=== PATIENT | female | born 1960 | race Caucasian/White ===

== ENCOUNTER 2016-08-08 22:57 | Inpatient (IN) | payer BC, MEDICARE ==
--- NOTE | ~2016-08-08 | PN ---
Unit #: [id number] #: [id number] Patient: RANI FOSTER [id number] [facility] [address] [place] [address] [id number] MR#: [id number] NAME: RANI FOSTER ROOM: P251 Age: 56 Sex: F Admission Date: 08/08/2016 : 1960 Attending Physician: Cb Callahan M.D. Admitting Physician: Cb Callahan M.D. Primary Care Physician: Primary Care Physician Irena BELTRÁN NOTES DATE 08/14/2016 DISCUSSION Ms. Rani Foster is a 56-year-old female seen on 08/14/2016. The patient interviewed, chart reviewed. Obtained information from nursing staff. The patient was compliant and cooperative. Mood sad, dysphoric. The patient reported that she was not able to sleep last night, somewhat agitated. Mood was labile, guarded, paranoid, delusional. Yesterday Geodon was stopped. Vital signs temperature afebrile. The patient seems to be guarded, paranoid. Complete review of systems unremarkable. MENTAL STATUS EXAMINATION General appearance, the patient dressed casually. Attention span and concentration fair to poor. Oriented to place and person. Mood and affect was labile. Speech rapid. Thought process circumstantial. Association guarded, paranoid. Mood lability agitation but denied any thoughts of harming self or others. Recent and remote memory poor. Insight and judgement poor. DIAGNOSES Bipolar mood disorder NOS. ASSESSMENT/PLAN Advise to start the patient on Geodon 20 mg twice daily with one dose now, Ativan 0.5 mg three times a day to control anxiety and tremor with one dose now. The patient to continue with the inpatient programming. If needed consider further adjustment of medication. Dictated by... Bhaskar Rich/conrad TD: 08/15/2016 21:32 JOB #: [id number] Unit #: [id number] #: [id number] Patient: RANI FOSTER PROGRESS NOTES X Cb Callahan MD PROGRESS NOTE
--- NOTE | ~2016-08-08 | DS ---
Unit #: [id number] #: [id number] Patient: AMBER RODRIGUEZ [id number] [place] [address] [id number] I MR#: [id number] NAME: AMBER RODRIGUEZ ROOM: [facility] Age: 56 Sex: F Admission Date: 08/08/2016 : 1960 Discharge Date: 08/16/2016 Attending Physician: Cb Callahan M.D. Primary Care Physician: Primary Care Physician No DISCHARGE SUMMARY REASON FOR ADMISSION Psychosis and mood lability. DIAGNOSTIC STUDIES LABORATORY RESULTS: Glucose 142, total protein 5.5. Porcupine level less than 0.1. HOSPITAL COURSE The patient was admitted to inpatient unit on 08/08/2016 and discharged on 08/16/2016. The patient was treated on the inpatient unit with group therapy, individual therapy, medication management. The patient responded well with the above modalities of treatment and showed improvement. The patient was continued on Depakote 500 mg in the morning and 1000 mg at bedtime for mood stabilization, Geodon 40 mg at bedtime for psychosis, Ativan 0.5 mg t.i.d. for anxiety. The patient was continued on Zestril 20 mg daily for hypertension, Protonix 40 mg daily for GERD, Requip 1 mg b.i.d. for restlessness of legs, Glucophage 1000 mg b.i.d. for diabetes, Levemir and NovoLog for diabetes. The patient was taken off from Zyprexa and Seroquel. DISCHARGE DIAGNOSES Psychiatric: Bipolar mood disorder, not otherwise specified, F31.89. Secondary diagnosis: Deferred. Medical diagnoses: Obesity, diabetes mellitus, tremor. Stressors: Psychosocial stressors. DISCHARGE INSTRUCTIONS The patient to follow up in outpatient program as per social services manager. CONDITION ON DISCHARGE The patient was pleasant and cooperative. Denied any psychotic symptom or any suicidal ideation. PROGNOSIS Guarded. DIET AND ACTIVITY As tolerated. Unit #: [id number] #: [id number] Patient: AMBER RODRIGUEZ Dictated by... Bhaskar Rich/celsol TD: 08/17/2016 07:28 JOB #: [id number] DISCHARGE SUMMARY X Cb Callahan MD DISCHARGE SUMMARY
--- NOTE | ~2016-08-08 | PN ---
Unit #: [id number] #: [id number] Patient: RANI FOSTER [id number] [facility] [address] [place] [address] [id number] I MR#: [id number] NAME: RANI FOSTER ROOM: [facility]8 Age: 56 Sex: F Admission Date: 08/08/2016 : 1960 Attending Physician: Cb Callahan M.D. Admitting Physician: Cb Callahan M.D. Primary Care Physician: Primary Care Physician Irena BELTRÁN NOTES DATE 08/13/2016 DISCUSSION Ms. Rani Foster is a 56-year-old female, seen on 08/13/2016. The patient interviewed, chart reviewed, and obtained information from the nursing staff. The patient continues to be withdrawn, isolative, flat affect, sad, and dysphoric. The patient reported feeling tired, no energy. The patient's vital signs are stable. The patient staying by herself, withdrawn, but cooperative. REVIEW OF SYSTEMS Complete review of systems unremarkable. MENTAL STATUS EXAMINATION General appearance: Patient casually dressed. Attention span and concentration, fair. Oriented to place and person. Mood and affect, sad and depressed. Speech, monotone. Thought process, concrete. Association, the patient denied any thoughts of harming self or others but guarded and paranoid. Recent and remote memory, poor. Insight and judgment, poor. DIAGNOSIS Bipolar mood disorder, NOS. ASSESSMENT/PLAN Advised to discontinue Zyprexa to keep the medication as minimum as possible, if needed consider taking her Depakote if the patient does not show any improvement. Closely monitor the patient's behavior on the inpatient unit. Dictated by... Bhaskar Rich/radha TD: 08/14/2016 07:29 JOB #: [id number] Unit #: [id number] #: [id number] Patient: RANI FOSTER LEIGH ANN NOTES X Cb Callahan MD PROGRESS NOTE
--- NOTE | ~2016-08-08 | PN ---
Unit #: [id number] #: [id number] Patient: RANI FOSTER [id number] [facility] [address] [place] [address] [id number] MR#: [id number] NAME: RANI FOSTER ROOM: [facility] Age: 56 Sex: F Admission Date: 08/08/2016 : 1960 Attending Physician: Cb Callahan M.D. Admitting Physician: Cb Callahan M.D. Primary Care Physician: Primary Care Physician Irena BELTRÁN NOTES DATE OF SERVICE: 08/15/2016 DISCUSSION Ms. Rani Foster is a 56-year-old female. The patient continues to be anxious, nervous, guarded, paranoid, mood lability. The patient reported that she was able to sleep better, but still having a lot of problem with the anxiety, mood lability, paranoia. Complete review of systems unremarkable. MENTAL STATUS EXAMINATION General appearance, the patient dressed casually. Attention span and concentration, poor. Oriented in place and person. Mood and affect, labile. Speech, slow. Thought process, circumstantial. The patient denied any thoughts of harming self or others, but guarded, paranoid, severe anxiety, isolative. Recent and remote memory, poor. Insight and judgment, poor. DIAGNOSIS Bipolar mood disorder, not otherwise specified. ASSESSMENT AND PLAN Advised to change Ativan to 0.5 mg in the morning and 0.5 mg in the afternoon, stop evening dose of Ativan and also change Geodon to 40 mg at bedtime and stop morning Geodon. Continue with the inpatient programing. If needed, consider further adjustment of medication. Dictated by... Bhaskar Rich/nancy TD: 08/15/2016 18:13 JOB #: [id number] Unit #: [id number] #: [id number] Patient: RANI FOSTER PROGRESS NOTES X Cb Callahan MD PROGRESS NOTE
--- NOTE | ~2016-08-08 | PN ---
Unit #: [id number] #: [id number] Patient: RANI FOSTER [id number] [facility] [address] [place] [address] [id number] MR#: [id number] NAME: RANI FOSTER ROOM: [facility]8 Age: 56 Sex: F Admission Date: 08/08/2016 : 1960 Attending Physician: Cb Callahan M.D. Admitting Physician: Cb Callahan M.D. Primary Care Physician: Primary Care Physician Irena BELTRÁN NOTES DATE OF SERVICE: 08/10/2016 DISCUSSION Ms. Rani Foster is a 56-year-old female, seen on 08/10/2016. The patient was interviewed, chart reviewed, and obtained information from nursing staff. The patient was isolative, guarded, flat affect, sad and dysphoric. The patient reports still feeling sad, depressed, withdrawn, and guarded. The patient reported feeling sleepy, tired. The patient is on multiple medication, try to keep her medication minimum as possible. The patient scheduled to be seen by medical doctor because of fluctuation of blood sugar ranging from 40 to 137 and subsequently, the patient's Amaryl was discontinued. The patient's mood was labile, guarded, paranoid, compliant with medication. Complete review of systems is unremarkable. The patient's vital signs showed on 10/09, blood sugar was 142. MENTAL STATUS EXAMINATION General appearance, the patient moderately obese. Attention span and concentration, poor. Oriented in place and person. Mood and affect, labile. Speech, slow. Thought process, circumstantial. Association, guarded and paranoid, delusional, but denied any thoughts of harming self or others. Recent and remote memory, poor. Insight and judgment, poor. DIAGNOSIS Schizoaffective disorder, bipolar type. ASSESSMENT AND PLAN Advised to continue with current medication combination if needed consider further adjustment of medication. The patient is currently on Zyprexa 20 mg at bedtime and Depakote 1000 mg at bedtime. Dictated by... Cb Callahan M.D. YUE/nancy TD: 08/12/2016 02:06 JOB #: [id number] Unit #: [id number] #: [id number] Patient: RANI FOSTER X Cb Callahan MD
--- NOTE | ~2016-08-08 | CO ---
Unit #: [id number] #: [id number] Patient: AMBER RODRIGUEZ [id number] [place] [address] [id number] I MR#: [id number] NAME: AMBER RODRIGUEZ ROOM: [facility] Age: 56 Sex: F Admission Date: 08/08/2016 : 1960 Attending Physician: Cb Callahan M.D. Primary Care Physician: Primary Care Physician No Consultation Date: 08/09/2016 CONSULTATION REPORT SUBJECTIVE Thu is a 56-year-old with history of perirectal abscess and surgery some years ago. We have been asked to see her for a "possible decubitus" on her buttock. OBJECTIVE GENERAL: Alert, obese, no apparent distress. VITAL SIGNS: Blood pressure 130/70, heart rate 80, respirations 16, temperature 98.6. SKIN: Warm and dry without rash or lesion. There is a scar distal to the coccyx. No open wound is noted. ASSESSMENT Scar. PLAN Desitin ointment to her "behind" to prevent skin breakdown. Dictated by... Nathalie Chatman P.A.-C. for Bhaskar Ortiz/nancy TD: 08/12/2016 02:53 JOB #: [id number] CONSULTATION REPORT X Nathalie Chatman CONSULTATION REPORT
--- NOTE | ~2016-08-08 | PN ---
Unit #: [id number] #: [id number] Patient: AMBER FOSTER [id number] [facility] [address] [place] [address] [id number] I MR#: [id number] NAME: AMBER FOSTER ROOM: P208 Age: 56 Sex: F Admission Date: 08/08/2016 : 1960 Attending Physician: Cb Callahan M.D. Admitting Physician: Cb Callahan M.D. Primary Care Physician: Primary Care Physician Irena PATEL PROGRESS NOTES DATE OF SERVICE: 08/11/2016 DISCUSSION Thu Foster is a 56-year-old female, seen on 08/11/2016. The patient interviewed, chart reviewed, and obtained information from nursing staff. The patient was compliant and cooperative. Mood, sad and dysphoric. Flat affect and guarded. The patient was withdrawn, isolative, and guarded. REVIEW OF SYSTEMS Complete review of systems unremarkable. MENTAL STATUS EXAMINATION General appearance, the patient dressed casually. Attention span and concentration, fair. Oriented in place and person. Mood and affect, sad, depressed, withdrawn, and isolative. Speech, slow. Thought process, circumstantial. The patient denied any thoughts of harming self or others, but guarded and paranoid. Recent and remote memory, poor. Insight and judgment, poor. DIAGNOSIS Bipolar mood disorder, not otherwise specified. ASSESSMENT AND PLAN Advised to continue with current medication and therapeutic protocol. We will monitor response to medication and make further adjustment of medication. Dictated by... Bhaskar Rich/nancy TD: 08/12/2016 15:49 JOB #: [id number] Unit #: [id number] #: [id number] Patient: AMBER FOSTER PEAANABELLE PROGRESS NOTES X Cb Callahan MD PROGRESS NOTE
--- NOTE | ~2016-08-08 | PN ---
Unit #: [id number] #: [id number] Patient: RANI FOSTER [id number] [facility] [address] [place] [address] [id number] MR#: [id number] NAME: RANI FOSTER ROOM: [facility]8 Age: 56 Sex: F Admission Date: 08/08/2016 : 1960 Attending Physician: Cb Callahan M.D. Admitting Physician: Cb Callahan M.D. Primary Care Physician: Primary Care Physician Irena BELTRÁN NOTES DATE 08/09/2016 DISCUSSION Ms. Rani Foster is a 56-year-old female seen on 08/09/2016. Patient interviewed. Chart reviewed. Obtained information from nursing staff. Patient was somewhat sad, dysphoric, withdrawn, isolative, guarded. Patient adjusting fairly well to unit rules. Patient was having problem with the dizziness. Patient is on multiple medications at this time. Patient participating in program. Complete review of system unremarkable. MENTAL STATUS EXAMINATION General appearance, patient dressed casually. Attention span, concentration fair. Oriented in place and person. Mood and affect sad, dysphoric. Speech monotone. Thought process concrete. Patient denied any thoughts of harming self or others but guarded, paranoid, delusional. Recent and remote memory poor. Insight and judgement poor. DIAGNOSIS: Bipolar mood disorder NOS. ASSESSMENT/PLAN Advised to discontinue clonidine and propranolol as we did not see any indication for this medication and that making her more dizzy. At this time, also, ordered medical consultation to review patient's medical medication. The patient is currently on Depakote, Zestril, Protonix, Levemir. Patient is also taking Zyprexa 20 mg at bedtime. We will closely monitor patient's mood and behavior. If needed, consider further adjustment of medication. Dictated by... Cb Callahan M.D. YUE/deepa TD: 08/10/2016 22:09 JOB #: [id number] Unit #: [id number] #: [id number] Patient: RANI FOSTER PROGRESS NOTES X Cb Callahan MD PROGRESS NOTE
--- NOTE | ~2016-08-08 | PN ---
Unit #: [id number] #: [id number] Patient: AMBER RODRIGUEZ [id number] [facility] [address] [place] [address] [id number] I MR#: [id number] NAME: AMBER RODRIGUEZ ROOM: P251 Age: 56 Sex: F Admission Date: 08/08/2016 : 1960 Attending Physician: Cb Callahan M.D. Admitting Physician: Cb Callahan M.D. Primary Care Physician: Primary Care Physician Irena [facility] PROGRESS NOTES SUBJECTIVE The patient was seen today in my office in the presence of her . The chart reviewed. The patient does take current medication. The patient was just released from the hospital [facility] under the care of Dr. Callahan and changes of medication has been done over there. The patient is currently on Depakote 500 mg in the morning and 1000 mg at night, Geodon 40 mg at night, Ativan 0.5 mg t.i.d. p.r.n. anxiety, and Requip 1 mg b.i.d. The patient also is still taking Nuedexta 20/10 mg b.i.d. is very supportive. The [facility] Still reported some anxiety and irritability. The patient denied any active suicidal or homicidal thoughts. Denied any active hallucinations. Discussed with the patient and medication adjustment and both agree with that. PLAN 1. Change the p.r.n. Ativan to be taken on a scheduled basis 0.5 mg t.i.d. 2. Continue other medications. Return to clinic back in 3 weeks for followup visit. Prescription given today for Nuedexta for 1-month supply with 1 additional refill. DIAGNOSTIC IMPRESSION AXIS I: 1. Bipolar disorder, most recent episode manic with psychotic feature. 2. Generalized anxiety disorder. AXIS II: Deferred. AXIS III: No acute illness. AXIS IV: AXIS V: Dictated by... Bhaskar Palacios/nancy TD: 08/18/2016 23:16 JOB #: [id number] Unit #: [id number] #: [id number] Patient: AMBER RODRIGUEZ PROGRESS NOTES X Willian Toscano MD PROGRESS NOTE
--- NOTE | ~2016-08-08 | CO ---
Unit #: [id number] #: [id number] Patient: RANI RODRIGUEZ [id number] [place] [address] [id number] I MR#: [id number] NAME: RANI RODRIGUEZ ROOM: [facility]8 Age: 56 Sex: F Admission Date: 08/08/2016 : 1960 Attending Physician: Cb Callahan M.D. Primary Care Physician: Primary Care Physician No CONSULTATION REPORT Medical consult was requested by Dr. Callahan earlier in the week and this is a re-evaluation of medication. HISTORY OF PRESENT ILLNESS Rani has a history of type 2 diabetes, and before admission, she had not been taking Levemir as prescribed. She had been on metformin and glimepiride. She was taking metformin 1000 mg b.i.d. and glimepiride 4 mg daily. The glimepiride was decreased, and she was started on Levemir at 15 units subcu q.h.s.. Since then, her fasting blood sugars have been 40, 54, and 56, and she has required treatment for these low blood sugars. She has no other complaints. PHYSICAL EXAMINATION CARDIAC: Regular rate and rhythm. No murmur, gallop, or rub. RESPIRATORY: Clear to auscultation bilaterally. ASSESSMENT AND PLAN Type 2 diabetes. We will decrease Levemir to 10 units subcu q.h.s. and continue with metformin as prescribed. We will continue to monitor. Dictated by... Radha Issa A.P.R.N. for Bhaskar Ortiz/nancy TD: 08/12/2016 23:40 JOB #: [id number] CONSULTATION REPORT X RADHA SIMPSON APRN CONSULTATION REPORT
--- NOTE | ~2016-08-08 | PN ---
Unit #: [id number] #: [id number] Patient: AMBER RODRIGUEZ [id number] [facility] [address] [place] [address] [id number] I MR#: [id number] NAME: AMBER RODRIGUEZ ROOM: P208 Age: 56 Sex: F Admission Date: 08/08/2016 : 1960 Attending Physician: Cb Callahan M.D. Admitting Physician: Cb Callahan M.D. Primary Care Physician: [facility] PRO[facility] NOT[facility] SUBJECTIVE The patient was seen today in my office. I did invite her to attend part of the session. The patient reported she has been falling and she fell 3 or 4 times at home. The patient did have black eyes. The patient is currently on Zyprexa 10 mg at night, Depakote DR 1000 mg in the morning and 1500 mg at night, and Nuedexta 20/10 mg b.i.d., Seroquel 50 mg as needed for agitation, and clonidine 0.1 mg b.i.d. The patient did demonstrate some mood swings and some irritability. Reported that she sleeping long hours. The patient requested to change in medication and we had discussion in the office regarding that and the best way to change the medication is to be in hospice stating and she requested to go to [facility]. I did offer the patient to go to the [facility], however, she declined as she does not want to have Dr. Batista her psychiatrist, to be the psychiatrist there. The patient requested to go to [facility] psychiatric [facility]. The patient preferred [facility] as the first choice. I did ask the to take the patient to [facility] to be assessed for possible admission. This patient was demonstrating some racing thoughts and irritability. Denied any active suicidal or homicidal thoughts. No report of any active hallucinations. PLAN The patient to be hospitalized at [facility] from medication change and the patient to reschedule an appointment in 1 month or as soon as she gets out of [facility]. DIAGNOSTIC IMPRESSION AXIS I: 1. Bipolar disorder, most recent episode manic with psychotic features, in partial remission. 2. Generalized anxiety disorder. AXIS II: Deferred. AXIS III: No acute illness. AXIS IV: AXIS V: Dictated by... Bhaskar Palacios/nancy Unit #: [id number] #: [id number] Patient: AMBER RODRIGUEZ TD: 08/09/2016 05:56 JOB #: [id number] JORGE PROGRESS NOTES X Willian Toscano MD PROGRESS NOTE
--- NOTE | ~2016-08-08 | PN ---
Unit #: [id number] #: [id number] Patient: AMBER RODRIGUEZ [id number] [facility] [address] [place] [address] [id number] MR#: [id number] NAME: AMBER RODRIGUEZ ROOM: [facility]8 Age: 56 Sex: F Admission Date: 08/08/2016 : 1960 Attending Physician: Cb Callahan M.D. Admitting Physician: Cb Callahan M.D. Primary Care Physician: Primary Care Physician Irena BELTRÁN NOTES DATE OF SERVICE: 08/12/2016 DISCUSSION Ms. Saravia is a 56-year-old female, seen on 08/12/2016. The patient was withdrawn, isolative and reports that she is still feeling sad, depressed, and feeling tired. The patient's vital signs stable. The patient was isolative, guarded, flat affect. The patient was cooperative. The patient's blood sugar was 128 and 104; blood pressure 127/69 and 90 in the morning. The patient is compliant with medication. REVIEW OF SYSTEMS Complete review of systems unremarkable. MENTAL STATUS EXAMINATION General appearance, the patient dressed casually. Attention span and concentration, fair. Oriented in place and person. Mood and affect were labile, sad and dysphoric. Speech, monotone. Thought process, concrete. The patient denied any thoughts of harming self or others, but sad, depressed, withdrawn, isolative, guarded. Recent and remote memory, poor. Insight and judgment, poor. DIAGNOSIS Bipolar mood disorder, not otherwise specified. ASSESSMENT AND PLAN Advised to continue with current medication, Depakote and Zyprexa 20 mg at bedtime. If needed, consider further adjustment of medication. Try to keep the medication minimum as possible. Dictated by... Bhaskar Rich/celsol TD: 08/14/2016 06:27 JOB #: [id number] Unit #: [id number] #: [id number] Patient: AMBER RODRIGUEZ PEAANABELLE PROGRESS NOTES X Cb Callahan MD PROGRESS NOTE
--- NOTE | ~2016-08-08 | HP ---
Unit #: [id number] #: [id number] Patient: RANI RODRIGUEZ [id number] [place] [address] [id number] MR#: [id number] NAME: RANI RODRIGUEZ ROOM: P208 Age: 56 Sex: F Admission Date: 08/08/2016 : 1960 Attending Physician: Cb Callahan M.D. Admitting Physician: Cb Callahan M.D. Primary Care Physician: Primary Care Physician No HISTORY AND PHYSICAL HISTORY OF PRESENT ILLNESS Rani is a 56 year old admitted to [address] [place] [address] because of her psychiatrist, Dr. Toscano is concerned about her medications but wants her to be under hospital supervision for the changes. PAST MEDICAL HISTORY 1. Morbid obesity 2. Diabetes mellitus 3. High blood pressure 4. History of perirectal abscess 5. History of resting tremor PAST SURGICAL HISTORY 1. I & D of a perirectal abscess 2. section x1 3. Lap band ALLERGIES No known drug allergies. SOCIAL HISTORY She dips a 1/2 can of snuff on a daily basis. Denies alcohol and illicit drug use. FAMILY HISTORY Medically noncontributory. REVIEW OF SYSTEMS CONSTITUTIONAL: No fever or chills. HEENT: Denies any sore throat, ear pain or runny nose. CARDIOVASCULAR: Denies chest pain, irregular heart rhythm or palpitations. CHEST: Denies shortness of breath or cough. No hemoptysis. GASTROINTESTINAL: Denies nausea, vomiting, diarrhea or chronic constipation. ENDOCRINE: Denies history of increased thirst or urination. No recent significant weight loss or gain. GENITOURINARY: Denies dysuria, frequency, or hematuria. SKIN: Denies any rashes. HEMATOLOGIC: Denies history of increased bleeding or bruising. MUSCULOSKELETAL: Denies any hot, swollen joints. No generalized muscle pain. Unit #: [id number] #: [id number] Patient: RANI RODRIGUEZ NEUROLOGIC: Denies problems with vision or speech. No frequent, severe headaches. No numbness, tingling or weakness in any extremities. Denies loss of bladder or bowel control. CURRENT MEDICATIONS 1. Levemir 15 units q.h.s. 2. Depakote 1000 mg q.h.s. 3. Propranolol 20 mg b.i.d. This was discontinued by the psychiatrist. 4. Nicotine patch 7 mg daily 5. Phenergan 25 mg q.i.d. 6. Ropinirole 1 mg b.i.d. 7. Protonix 40 mg daily 8. Zestril 20 mg daily 9. Depakote 500 mg daily 10. Glucophage 1000 mg b.i.d. 11. Amaryl 4 mg b.i.d. 12. Milk of Magnesia p.r.n. 13. Maalox p.r.n. 14. Tylenol p.r.n. 15. Zyprexa 20 mg q.h.s. 16. Seroquel 50 mg q 8 h. p.r.n. PHYSICAL EXAMINATION GENERAL: Alert, obese, in no apparent distress. VITAL SIGNS: Blood pressure 120/84, heart rate 80, respirations 16, temperature 98.6. WEIGHT: 220 pounds. HEIGHT: 5'3". SKIN: Warm and dry without rash or lesion. HEENT: Normocephalic. TMs not viewed. Oral and nasal passages clear. Conjunctivae clear. Pupils equal, round and reactive to light and accommodation. Extraocular movements intact. Bilateral orbits bruised but bruises have started to yellow. NECK: Supple without lymphadenopathy or thyromegaly. HEART: Regular rate and rhythm without murmur. LUNGS: Clear. ABDOMEN: Soft, nontender. : Not done. EXTREMITIES: No evidence of cyanosis, clubbing or edema. Moves all extremities without focal deficit. Fine resting tremor right upper extremity with positive cogwheel. NEUROLOGICAL: Grossly within normal limits. Cranial Nerves: II: Visual west are intact. III, IV AND : Extraocular movements are intact. Pupils are equal, round and reactive to light. V: Facial sensation is grossly normal. VII: Facial movements and expression are normal. VIII: Auditory acuity grossly intact. IX, X: Uvula is midline. Phonation is normal. XI: Patient shrugs shoulders and turns head normally. XII: Tongue protrudes in the midline. Sensory and Motor Function: Sensory is grossly intact. She has a fine resting tremor in her left upper extremity with positive cogwheel. Otherwise moves all extremities without focal deficit. Coordination: Gait is normal. She does walk with a cane. In fact it is more like she carries the cane around. It is very short and she just carries it in her right hand. During exam I did lengthen the cane so she can actually use it for balance. DTRs is intact. IMPRESSION 1. Psychiatric admission. Unit #: [id number] #: [id number] Patient: RANI RODRIGUEZ 2. Morbid obesity. 3. Diabetes mellitus. 4. High blood pressure. 5. Fine resting tremor with positive cogwheel, very likely Parkinsons although she tells me she has never been diagnosed. RECOMMENDATIONS PSYCHIATRIC: Per psychiatrist. MEDICAL: 1. I see no contraindications to participating in facility's activities. 2. Propranolol 20 mg b.i.d. was discontinued by psychiatrist at time of admission. I do not want to DC this abruptly. We will decrease the propranolol to 10 mg b.i.d. 3. Decrease Phenergan to 25 mg q.8 h. p.r.n. nausea vomiting. 4. She will need to follow up with her primary care physician for exam and definitive diagnosis of the resting tremor. MEDICAL PROGNOSIS Good. MEDICAL CONDITION Stable. Dictated by... Nathalie Chatman P.A.-C. for Bhaskar Ortiz/conrad TD: 08/09/2016 22:33 JOB #: [id number] HISTORY AND PHYSICAL X Nathalie Chatman HISTORY AND PHYSICAL
--- NOTE | ~2016-08-08 | PA ---
Unit #: [id number] #: [id number] Patient: RANI RODRIGUEZ [id number] [facility] [address] [place] [address] [id number] I MR#: [id number] NAME: RANI RODRIGUEZ ROOM: [facility] Age: 56 Sex: F Admission Date: 08/08/2016 : 1960 Date of Assessment: 08/08/2016 Attending Physician: Cb Callahan M.D. Admitting Physician: Cb Callahan M.D. Primary Care Physician: Primary Care Physician No PSYCHIATRIC ASSESSMENT INFORMANTS The patient's reliability, fair; chart reliability, good. CHIEF COMPLAINT Paranoia. HISTORY OF PRESENT ILLNESS Rani is a 56-year-old female, presented with the above-mentioned complaint. The patient has a long history of psychiatric illness. History of previous treatment at [facility] and outpatient followup through [facility] with Dr. Toscano. The patient also received services through [facility] in the past. The patient lives at home with her , on disability. The patient was seen by Dr. Toscano and referred for the med changes as the patient was having increasing problem with paranoia including increased anxiety, tremor, occasional fall. The patient's condition has been deteriorating for the past couple of months. The patient reported that she has been having severe anxiety. Reports that she is unable to do grocery shopping and complete other daily tasks. The patient reported delusional thinking stated that "I believe Satan in me." The patient does not elaborate on this, but paranoid, delusional, inappropriate affect, flat, sad, dysphoric, severe anxiety. The patient's current medication is not working on the outpatient basis; therefore, referred to inpatient for psychiatric stabilization. The patient also reported having problem with the intense anger. The patient reports decline in energy, unable to take care of her ADL, hopelessness, worthlessness, but denied any suicidal ideation or homicidal ideation, but having above-mentioned symptoms. Needing inpatient admission at this time for psychiatric stabilization. PAST PSYCHIATRIC HISTORY Remarkable for history of inpatient and outpatient treatment as mentioned above. Outpatient followup with Dr. Toscano. FAMILY HISTORY/SOCIAL HISTORY The patient lives with her , on disability. Family psychiatric illness is unknown for any history of any psychiatric illness. No known history of any abuse. MEDICAL HISTORY Remarkable for history of diabetes, hypertension, tremor. Musculoskeletal; muscle and tone, no atrophy or abnormal movement. Gait normal. Unit #: [id number] #: [id number] Patient: RANI RODRIGUEZ MEDICATION HISTORY The patient is currently on Levemir 15 units at 2100 hours, Depakote 1000 mg at bedtime, propranolol 20 mg b.i.d., ropinirole 1 mg b.i.d., Catapres 0.1 mg b.i.d., Protonix 40 mg daily, Zestril 20 mg daily, Depakote 500 mg daily, Glucophage 1000 mg b.i.d., Amaryl 4 mg b.i.d., Seroquel p.r.n. ALLERGIES No known drug allergies. SUBSTANCE ABUSE HISTORY None. REVIEW OF SYSTEMS HEENT: Eyes, clear. Ears, nose, mouth, and throat; clear. CARDIOVASCULAR: Unremarkable. RESPIRATORY: Unremarkable. GI: Unremarkable. : Unremarkable. SKIN: Unremarkable. LYMPH NODE: Unremarkable. NEUROLOGIC: Unremarkable. ENDOCRINE: Unremarkable. HEMATOLOGIC: Unremarkable. ALLERGIC/IMMUNOLOGIC: Unremarkable. MUSCULOSKELETAL: Muscle strength and tone, no atrophy or abnormal movement. Gait normal. MENTAL STATUS EXAMINATION CONSTITUTIONAL: Measurement of vital signs; temperature 97.6, pulse 95, respirations 19, blood pressure 119/84. Height is 5 feet 3 inches, weight 220 pounds. GENERAL APPEARANCE: The patient dressed casually. Noticed black circles underneath her eye. MUSCULOSKELETAL: Please see above. PSYCHIATRIC EXAMINATION Description of speech; regular rate, normal volume, normal articulation. Description of thought process, goal directed. Description of association, intact. Description of abnormal psychotic thinking; guarded, paranoid, mood lability, paranoia. Denied any suicidal ideation, but feeling of hopelessness and worthlessness. Description of the patient's judgment; concerning everyday activity, poor. Social situation, poor. Concerning psychiatric condition, poor. Complete mental status examination; oriented in time, place, and person. Recent and remote memory, fair. Attention span and concentration, fair. Language, able to name object and repeat phrases. Fund of knowledge, fair. Vocabulary, fair. Mood and affect, sad and dysphoric. Insight and judgment, fair to poor. ASSETS AND LIABILITIES Assets; the patient articulate, able to take care of her ADL. Liability; history of depression, chronic mental illness. ADMITTING DIAGNOSES Psychiatric: Bipolar mood disorder, not otherwise specified, F31.89. Unit #: [id number] #: [id number] Patient: RANI RODRIGUEZ Secondary diagnosis: Deferred. Medical diagnoses: Obesity, diabetes mellitus, tremors. Stressors: Psychosocial stressors. PSYCHIATRIC PLAN AND TREATMENT GOAL 1. Advised to admit the patient on the inpatient unit. Provide safe, supportive, and structured environment. 2. Ordered labs; CBC, CMP, UA, UDS, and Depakote level, ammonia level. 3. Precaution for self-harm. The patient to be monitored closely for fall precaution. 4. The patient to attend all the programing. Advised to resume current medication. If needed, consider further adjustment of medication. The patient has no history of any hypertension. Plan to consider cutting back on her medication if possible to minimum and consider mood stabilizer. The patient to attend all the programing on the inpatient unit. Treatment goal to attain euthymic mood, gain insight into her problem, and learn coping skills. DISCHARGE PLAN Plan to stabilize the patient and consider followup in outpatient program. ESTIMATED LENGTH OF STAY 5 to 7 days. Dictated by... Bhaskar Rich/nancy TD: 08/10/2016 05:18 JOB #: [id number] PSYCHIATRIC ASSESSMENT X Cb Callahan MD X PSYCHIATRIC ASSESSMENT
--- NOTE | ~2016-08-08 | PN ---
Unit #: [id number] #: [id number] Patient: AMBER RODRIGUEZ [id number] [facility] [address] [place] [address] [id number] MR#: [id number] NAME: AMBER RODRIGUEZ ROOM: P251 Age: 56 Sex: F Admission Date: 08/08/2016 : 1960 Attending Physician: Cb Callahan M.D. Admitting Physician: Cb Callahan M.D. Primary Care Physician: Primary Care Physician Irena [facility] PROGRESS NOTES SUBJECTIVE The patient was seen today in my office. The chart reviewed. The patient does comply on medication. Denied any side effects to medication other than she did not like the Ativan which make her more agitated. The patient is currently on Depakote 500 mg in the morning and 1000 mg at night, Geodon 40 mg at night, Ativan 0.25 mg b.i.d., Requip 1 mg p.o. t.i.d. which is the dose was adjusted by Dr. Bernstein, the neurologist recently and she is still taking Nuedexta 20/10 mg b.i.d. Reported less mood swings, less irritability, less manic symptomatology. Denied any active suicidal or homicidal thoughts. Denied any psychotic behavior. Reported insomnia. Vital signs; blood pressure 104/56, pulse is 86 per minute and regular, weight is 199 pounds, height is 5 feet 7 inches. The patient lost 12 pounds since last visit and she was excited about that. was present during the visit and he was very supportive. Discussed with the patient medication change and she did agree with that. PLAN 1. Discontinue Ativan due to side effects. 2. A trial of Lunesta 3 mg at bedtime for insomnia. 3. Continue other medications. Return to clinic back in 1 month for followup visit. Prescription given today for the Lunesta and Geodon for 1-month supply with 1 additional refill. DIAGNOSTIC IMPRESSION AXIS I: 1. Bipolar disorder, most recent episode manic with psychotic feature, improved on the medication. 2. Generalized anxiety disorder. AXIS II: Deferred. AXIS III: No acute illness. AXIS IV: AXIS V: Dictated by... Willian Toscano M.D. SAL[place]ADOR/nancy TD: 10/13/2016 17:00 JOB #: [id number] Unit #: [id number] #: [id number] Patient: AMBER RODRIGUEZ PROGRESS NOTES Page 1 of 1 X Willian Toscano MD PROGRESS NOTE
--- NOTE | ~2016-08-08 | CO ---
Unit #: [id number] #: [id number] Patient: RANI RODRIGUEZ [id number] [place] [address] [id number] I MR#: [id number] NAME: RANI RODRIGUEZ ROOM: [facility] Age: 56 Sex: F Admission Date: 08/08/2016 : 1960 Attending Physician: Cb Callahan M.D. Primary Care Physician: Primary Care Physician No Consultation Date: 08/15/2016 CONSULTATION REPORT SUBJECTIVE Rani is a 56-year-old lady who wears a brief. Nursing staff was concerned that she had a "possible UTI." The patient has no complaints of urgency, frequency, or dysuria. Urinalysis from 08/13/2016 showed 10 to 25 wbc's and negative bacteria. PLAN Plan will be to encourage fluids. Please let us know if anything develops. Dictated by... Nathalie Chatman P.A.-C. for Bhaskar Ortiz/nancy TD: 08/16/2016 17:48 JOB #: [id number] CONSULTATION REPORT X Nathalie Chatman CONSULTATION REPORT
--- NOTE | ~2016-08-08 | PN ---
Unit #: [id number] #: [id number] Patient: AMBER RODRIGUEZ [id number] [facility] [address] [place] [address] [id number] I MR#: [id number] NAME: AMBER RODRIGUEZ ROOM: P251 Age: 56 Sex: F Admission Date: 08/08/2016 : 1960 Attending Physician: Cb Callahan M.D. Admitting Physician: Cb Callahan M.D. Primary Care Physician: Primary Care Physician Irena PATEL PROGRESS NOTES SUBJECTIVE The patient was seen today in my office. The chart reviewed. The patient's was present during the visit. The patient has an appointment with Dr. Bernstein, the neurologist for evaluation on 09/18. The patient is currently on Depakote 500 mg in the morning and 1000 mg at night; Geodon 40 mg at night; Ativan 0.25 mg t.i.d.; Requip 1 mg p.o. b.i.d.; and Nuedexta 20/10 mg b.i.d. is very supportive and he monitor the patient's compliance with medications. The patient will been seen Dr. Bernstein, neurologist for evaluation for the hand tremors and get clearance from him for the driving as I recommend the patient not to drive at this point, so she get clearance from the neurologist. Dr. Bernstein for the hand tremors and shakes. The patient did demonstrate improvement in behavior and symptomatology. No report of any active hallucination or paranoia. No report of any major mood swings. Thoughts have been more clear and organized. Sleep has been fair. Vital signs are stable. Blood pressure 126/89, pulse is 109 per minute and regular, weight is 211 pounds, and height is 5 feet 7 inches. The patient does not smoke cigarettes. Denied any physical pain. PLAN Continue current medication. Return to clinic back in 1 month for followup visit. Prescription given today for the Depakote, Ativan, and Geodon for 1-month supply with 1 additional refill. DIAGNOSTIC IMPRESSION AXIS I: 1. Bipolar disorder, most recent episode manic with psychotic feature, improved, on medication. 2. Generalized anxiety disorder. AXIS II: Deferred. AXIS III: No acute illness. AXIS IV: AXIS V: Dictated by... Bhaskar Palacios/nancy TD: 09/13/2016 19:15 JOB #: [id number] Unit #: [id number] #: [id number] Patient: AMBER RODRIGUEZ PROGRESS NOTES Page 1 of 1 X Willian Toscano MD X PROGRESS NOTE
[~2016-08-08 22:57] MED LIST: BENTYL20 MG PO; GLUCOPHAGE500 MG PO; LEVAQUIN PO; LEXAPRO5 MG PO; LITHIUM CARBON300 M1 PO; MELATONIN3 M4 PO; METFORMIN HCL500 M1 PO; METFORMIN PO; PERCOCET 5-3251 TAB PO; PRAMIPEXOLE DI0.5 MG PO; PROTONIX PO; PROTONIX20 MG; PROTONIX20 MG PO; REQUIP0.25 MG PO; ROPINIROLE HCL1 MG; ROPINIROLE HCL1 MG PO; SEROQUEL PO; TRILEPTAL300 MG PO; ZOLOFT50 MG PO
[2016-08-09 09:53] LABS: BASOPHIL% 0.2 % (0-2.5); EOSINOPHIL% 0.8 % (0.0-7.0); HEMATOCRIT 35.1 % (35.0-45.0); HEMOGLOBIN 11.7 gm/dL (12.0-16.0); LYMPHOCYTE# 3.6 X10e3 (1.0-3.5); LYMPHOCYTE% 55.8 % (17.0-45.0); MEAN CELL VOLUME 105.3 FL (83-96); MEAN CORPUSCULAR HGB CONC 33.2 g/dL (30-36); MEAN PLATELET VOLUME 9.1 FL (6.5-11.5); MONOCYTE# 0.8 X10e3 (0-1.0); MONOCYTE% 12.6 % (3.0-12.0); NEUTROPHIL% 30.6 % (40-75); PLATELET COUNT 174 X10e3 (140-420); RED BLOOD COUNT 3.33 X10e (3.90-5.30); RED CELL DISTRIBUTION WIDTH 14.7 % (11.0-15.5); WHITE BLOOD COUNT 6.5 X10e3 (4.0-10.5)
[2016-08-09 09:56] LABS: DIFF IND YES
[2016-08-09 10:06] LABS: BILIRUBIN,TOTAL 0.4 mg/dL (0.2-2.0); BUN/CREATININE RATIO 22.5; CALCIUM SERUM 8.9 mg/dL (8.4-10.2); CREATININE SERUM 1.2 mg/dL (0.6-1.4); GLOM FILT RATE Estimated 49.2 mL/min (>60); PROTEIN TOTAL SERUM 5.5 g/dL (6.0-8.3)
[2016-08-09 10:07] LABS: THYROID STIMULATING HORMONE 0.74 uIU/ml (0.34-5.60)
[2016-08-09 10:13] LABS: ANISOCYTOSIS SL; PLATELET ESTIMATE NORMAL (NORMAL)
[2016-08-09 10:16] LABS: FREE THYROXIN (T4) 0.84 ng/dL (0.58-1.64)
[2016-08-14 09:33] LABS: URINE APPEARANCE CLEAR; URINE BILIRUBIN NEG (NEG); URINE BLOOD NEG (NEG); URINE COLOR YELLOW; URINE GLUCOSE 250 MG/DL (NEG); URINE KETONE NEG (NEG); URINE LEUKOCYTE ESTERASE 2+ (NEG); URINE NITRATE NEG (NEG); URINE PH 7.5 (5-8); URINE PROTEIN NEG (NEG); URINE SPECIFIC GRAVITY 1.016 (1.003-1.035); URINE UROBILINOGEN 0.2 MG/DL (NEG)
[2016-08-14 09:35] LABS: U HYALINE CASTS AUWI 0-2 /[LPF]; URBCS1 AUWI 0-2 /[HPF] (0-2); URINE BACTERIA AUWI NEG (NEGATIVE); URINE SQUAMOUS EPITHELIAL CELL OCC /[HPF]
[2016-08-14 10:41] LABS: AMPHETAMINE NEG (NEG); BARBITURATES NEG (NEG); BENZODIAZEPINES NEG (NEG); COCAINE NEG (NEG); MARIJUANA NEG (NEG); OPIATES NEG (NEG); TRICYCLIC ANTIDEPRESSANTS POS (NEG); U METHADONE NEG (NEG)
== END 2016-08-16 16:30 | disposition home or self-care (01) | DRG 885 ==
LOC: P2S 22:57 → POF 08-14 13:58 → P2S 08-14 14:05 → P2L 08-15 14:28
PROVIDERS: Psychiatry & Neurology Psychiatry
DX: F31.89 Other bipolar disorder (principal); E66.01 Morbid (severe) obesity due to excess calories; I10 Essential (primary) hypertension; E11.9 Type 2 diabetes mellitus without complications; R25.1 Tremor, unspecified; F31.73 Bipolar disorder, in partial remission, most recent episode manic; F41.1 Generalized anxiety disorder; F17.290 Nicotine dependence, other tobacco product, uncomplicated; Z98.84 Bariatric surgery status; L90.5 Scar conditions and fibrosis of skin; F25.0 Schizoaffective disorder, bipolar type; F41.9 Anxiety disorder, unspecified
CPT/HCPCS: 80053; 80164; 80307; 81003; 82140; 82947; 84439; 84443; 85025

== ENCOUNTER 2016-12-21 19:00 | Inpatient (IN) | payer BC, MEDICARE ==
[~2016-12-21] VITALS: Ht 167.6 cm; Wt 99.3 kg
--- NOTE | ~2016-12-21 | PN ---
Unit #: [id number] #: [id number] Patient: RANI FOSTER [id number] [facility] [address] [place] [address] [id number] I MR#: [id number] NAME: RANI FOSTER ROOM: P256 Age: 56 Sex: F Admission Date: 12/21/2016 : 1960 Attending Physician: Cb Callahan M.D. Admitting Physician: Cb Callahan M.D. Primary Care Physician: Primary Care Physician Irena BELTRÁN NOTES DATE 12/29/2016 DISCUSSION Ms. Rani Foster is a 56-year-old female seen on 12/29/2016. Patient interviewed. Chart reviewed. Obtained information from nursing staff. Patient was admitted with suicidal ideation, depression. Mood was labile. Patient was somewhat sleepy this morning, started on Haldol. Patient has been awake all night long after having taking sleeping medication. This morning, patient was very sleepy, drowsy. Patient needing one-to-one monitoring at all time. Patient still having problem with mood lability, anxiety, getting mad, angry, mood lability. Complete review of system unremarkable. MENTAL STATUS EXAMINATION General appearance, patient dressed in hospital attire. Attention span, concentration poor. Orientation in self. Mood and affect labile. Speech slow. Thought process circumstantial. Patient denied any thoughts of harming self or others but guarded, paranoid. Recent and remote memory poor. Insight and judgement poor. DIAGNOSIS Bipolar mood disorder NOS. ASSESSMENT/PLAN Advised to cut back on Haldol 5 mg at bedtime. Continue with Cogentin but lower the dosage to 1 mg twice daily. Advised to hold Geodon if patient too sleepy. We will continue to monitor patient's medical condition also and make further adjustment of medication if needed. Dictated by... Bhaskar Rich/deepa TD: 12/29/2016 21:16 JOB #: [id number] Unit #: [id number] #: [id number] Patient: RANI FOSTER PROGRESS NOTES Page 1 of 1 X Cb Callahan MD PROGRESS NOTE
--- NOTE | ~2016-12-21 | PN ---
Unit #: [id number] #: [id number] Patient: AMBER FOSTER [id number] [facility] [address] [place] [address] [id number] I MR#: [id number] NAME: AMBER FOSTER ROOM: [facility] Age: 56 Sex: F Admission Date: 12/21/2016 : 1960 Attending Physician: Cb Callahan M.D. Admitting Physician: Cb Callahan M.D. Primary Care Physician: Primary Care Physician Irena BELTRÁN NOTES DATE OF SERVICE: 12/23/2016 DISCUSSION Ms. Clint Foster is a 56-year-old female, seen on 12/23/2016. The patient's affect was brighter, poor boundaries, impulsive, needing prompts to take care of her bathing, dressing, thoughts of concrete, guarded paranoid, mood lability. The patient's blood sugar this morning was 114, continues to have bizarre behavior, paranoia, mood lability. Complete review of systems unremarkable. MENTAL STATUS EXAMINATION General appearance, the patient dressed casually. Attention span and concentration, poor. Mood and affect, labile. Speech, louder. Thought process, circumstantial, guarded and paranoid, but denied any thoughts of harming self or others, but guarded. Recent and remote memory, poor. Insight and judgment, poor. DIAGNOSES Bipolar mood disorder, recurrent, severe, mixed phase. ASSESSMENT AND PLAN Advised to continue with current medication and therapeutic protocol. If needed, consider further adjustment of medication. Dictated by... Bhaskar Rich/nancy TD: 12/23/2016 15:11 JOB #: [id number] Unit #: [id number] #: [id number] Patient: AMBER FOSTER PROGRESS NOTES Page 1 of 1 X Cb Callahan MD X PROGRESS NOTE
--- NOTE | ~2016-12-21 | PN ---
Unit #: [id number] #: [id number] Patient: RANI FOSTER [id number] [facility] [address] [place] [address] [id number] MR#: [id number] NAME: RANI FOSTER ROOM: P256 Age: 56 Sex: F Admission Date: 12/21/2016 : 1960 Attending Physician: Cb Callahan M.D. Admitting Physician: Cb Callahan M.D. Primary Care Physician: Primary Care Physician Irena PATEL PROGRESS NOTES DATE 12/26/2016 DISCUSSION Ms. Rani Foster is a 56-year-old female, seen on 12/26/2016. The patient compliant and cooperative during interview, but mood was labile, disorganized behavior, disorganized thought process. The patient had a bowel movement in her clothes in her room. The patient was guarded, paranoid, disorganized behavior, disorganized thought process, mood lability. The patient still needing multiple redirections. REVIEW OF SYSTEMS Complete review of systems unremarkable. MENTAL STATUS EXAMINATION General appearance: Patient dressed casually in hospital attire. Attention span and concentration, fair. Oriented in place and person. Mood and affect, labile. Speech, rapid, pressured. Thought process, circumstantial, guarded. Denied any thoughts of harming self or others but guarded, paranoid, and disorganized behavior, disorganized thought process. Recent and remote memory, poor. Insight and judgment, poor. DIAGNOSIS Bipolar mood disorder, NOS. ASSESSMENT/PLAN Advised to increase Haldol to 5 mg three times a day, add Cogentin 1 mg three times a day for psychotic symptoms, if needed consider further adjustment of medication. Continue with the inpatient programming. Dictated by... Bhaskar Rich/radha TD: 12/27/2016 06:38 JOB #: [id number] Unit #: [id number] #: [id number] Patient: RANI FOSTER PROGRESS NOTES Page 1 of 1 X Cb Callahan MD X PROGRESS NOTE
--- NOTE | ~2016-12-21 | PN ---
Unit #: [id number] #: [id number] Patient: RANI FOSTER [id number] [facility] [address] [place] [address] [id number] I MR#: [id number] NAME: RANI FOSTER ROOM: [facility] Age: 56 Sex: F Admission Date: 12/21/2016 : 1960 Attending Physician: Cb Callahan M.D. Admitting Physician: Cb Callahan M.D. Primary Care Physician: Primary Care Physician Irena PATEL PROGRESS NOTES DATE 12/24/2016 DISCUSSION Rani Foster is a 56-year-old female, seen on 12/24/2016. The patient interviewed, chart reviewed, and obtained information from the nursing staff. The patient reports that she was able to sleep good, compliant and cooperative, still isolative, guarded, bizarre behavior, bizarre thought process. Vital signs, 98.0, 139, 21, 116/88. The patient was out of milieu and interacted with some of the peers. The patient was somewhat loud, disruptive, cussing without provocation, still bizarre behavior. REVIEW OF SYSTEMS Complete review of systems unremarkable. MENTAL STATUS EXAMINATION General appearance: Patient dressed casually. Attention span and concentration, poor. Oriented in self and place. Mood and affect, labile. Speech, rapid, disorganized. Thought process, disorganized. Denied any thoughts of harming self or others but mood lability, passive SI. Recent and remote memory, poor. Insight and judgment, poor. DIAGNOSES 1. Psychosis, NOS. 2. Bipolar mood disorder, NOS. ASSESSMENT/PLAN Advised to continue with the current medication and therapeutic protocol, and if needed consider further adjustment of medication. The patient is currently on Valium, Depakote, and Geodon. Dictated by... Cb Callahan M.D. YUE/radha TD: 12/26/2016 06:16 JOB #: [id number] Unit #: [id number] #: [id number] Patient: RANI FOSTER PROGRESS NOTES Page 1 of 1 X Cb Callahan MD X PROGRESS NOTE
--- NOTE | ~2016-12-21 | PN ---
Unit #: [id number] #: [id number] Patient: RANI FOSTER [id number] [facility] [address] [place] [address] [id number] I MR#: [id number] NAME: RANI FOSTER ROOM: P256 Age: 56 Sex: F Admission Date: 12/21/2016 : 1960 Attending Physician: Cb Callahan M.D. Admitting Physician: Cb Callahan M.D. Primary Care Physician: Primary Care Physician Irena PATEL PROGRESS NOTES DATE 12/28/2016 DISCUSSION Ms. Rani Foster is a 56-year-old female seen on 12/28/2016. Patient interviewed. Chart reviewed. Obtained information from nursing staff. Patient in wheelchair, needing one-to-one monitoring. Patient was able to sleep better. Vital signs stable 98.6, 84, 20, 108/74. Patient seemed somewhat less manic, needing help with ambulation, dressing, toileting, transfer. Patient wanted to know about going home. Patient seemed less paranoid. Complete review of system unremarkable. MENTAL STATUS EXAMINATION General appearance, patient dressed in hospital attire. Attention span, concentration poor. Oriented in place and person. Mood and affect was sad, dysphoric. Speech monotone. Thought process disorganized to circumstantial. Association, patient denied any suicidal or homicidal ideation but guarded, paranoid. Recent and remote memory poor. Insight and judgement poor. DIAGNOSIS Bipolar mood disorder NOS. ASSESSMENT/PLAN Advised to continue with current medication and therapeutic protocol. If needed, consider further adjustment of medication. No side effects from medication. Patient is currently on combination of Desyrel 100 mg p.r.n. for sleep. Also, on Cogentin, haloperidol, Valium, Requip, Depakote. Patient's Depakote level was 93, ammonia level 18. Dictated by... Cb Callahan M.D. YUE/deepa TD: 12/28/2016 20:31 JOB #: [id number] Unit #: [id number] #: [id number] Patient: RANI FOSTER PROGRESS NOTES Page 1 of 1 X Cb Callahan MD PROGRESS NOTE
--- NOTE | ~2016-12-21 | PN ---
Unit #: [id number] #: [id number] Patient: RANI FOSTER [id number] [facility] [address] [place] [address] [id number] I MR#: [id number] NAME: RANI FOSTER ROOM: [facility] Age: 56 Sex: F Admission Date: 12/21/2016 : 1960 Attending Physician: Cb Callahan M.D. Admitting Physician: Cb Callahan M.D. Primary Care Physician: Primary Care Physician Irena PATEL PROGRESS NOTES DATE 12/22/2016 DISCUSSION Rani Foster is a 56-year-old female seen on 12/22/2016. Patient interviewed. Chart reviewed. Obtained information from nursing staff. Patient's mood was labile, anxious, nervous, sad, depressed. Patient still having symptoms of paranoia, delusional, attending to internal stimuli, hearing voices. Complete review of system unremarkable. MENTAL STATUS EXAMINATION General appearance, patient dressed casually. Attention span, concentration poor. Oriented in place and person. Mood and affect labile. Speech rapid. Thought process circumstantial. Patient reported having suicidal ideation, hallucinations. Denied any visual hallucinations. Recent and remote memory poor. Insight and judgement poor. DIAGNOSIS Bipolar mood disorder NOS. ASSESSMENT/PLAN Advised to continue with current medication and therapeutic protocol. If needed, consider further adjustment of medication. Dictated by... Bhaskar Rich/deepa TD: 12/23/2016 22:19 JOB #: [id number] Unit #: [id number] #: [id number] Patient: RANI FOSTER PROGRESS NOTES Page 1 of 1 X Cb Callahan MD X PROGRESS NOTE
--- NOTE | ~2016-12-21 | HP ---
Unit #: [id number] #: [id number] Patient: RANI RODRIGUEZ [id number] [place] [address] [id number] I MR#: [id number] NAME: RANI RODRIGUEZ ROOM: 31 Age: 56 Sex: F Admission Date: 12/21/2016 : 1960 Attending Physician: Cb Callahan M.D. Admitting Physician: Cb Callahan M.D. Primary Care Physician: Primary Care Physician No HISTORY AND PHYSICAL HISTORY OF PRESENT ILLNESS Rani is a 56-year-old female admitted on 12/21/[address] [place] [address] for psychosis. PAST MEDICAL HISTORY 1. Morbid obesity. 2. Hypertension. 3. Type 2 diabetes. 4. Gastroesophageal reflux disease. PAST SURGICAL HISTORY 1. I and D of perirectal abscess. 2. section x1. 3. Lap-Band procedure. ALLERGIES No known drug allergies. SOCIAL HISTORY She smokes 1/2 pack of cigarettes daily. Denies alcohol or illegal drug use. She is currently and living with her . FAMILY HISTORY Noncontributory. REVIEW OF SYSTEMS CONSTITUTIONAL: No fever or chills. HEENT: Denies any sore throat, ear pain or runny nose. CARDIOVASCULAR: Denies chest pain, irregular heart rhythm or palpitations. CHEST: Denies shortness of breath or cough. No hemoptysis. GASTROINTESTINAL: Denies nausea, vomiting, diarrhea or chronic constipation. ENDOCRINE: Denies history of increased thirst or urination. No recent significant weight loss or gain. GENITOURINARY: Denies dysuria, frequency, or hematuria. SKIN: Denies any rashes. HEMATOLOGIC: Denies history of increased bleeding or bruising. MUSCULOSKELETAL: Denies any hot, swollen joints. No generalized muscle pain. NEUROLOGIC: Denies problems with vision or speech. No frequent, severe headaches. No numbness, tingling or weakness in any extremities. Denies loss of bladder or bowel control. Unit #: [id number] #: [id number] Patient: RANI RODRIGUEZ CURRENT MEDICATIONS 1. Zofran. 2. Cephalexin. 3. Valium. 4. Myrbetriq. 5. Depakote. 6. Geodon. 7. Zestril. 8. Protonix. 9. Requip. 10. Glucophage. 11. Nuedexta. 12. Levemir. PHYSICAL EXAMINATION GENERAL: Alert, oriented, in no acute distress. VITAL SIGNS: Blood pressure 93/55, heart rate 89, respirations 16, temperature 98.7. HEIGHT: 5 feet 6. WEIGHT: 219 pounds. SKIN: Warm and dry without rash or lesion. HEENT: Normocephalic. TMs not viewed. Oral and nasal passages clear. Conjunctivae clear. PERRLA. EOMs intact. NECK: Supple without lymphadenopathy or thyromegaly. HEART: Regular rate and rhythm without murmur. LUNGS: Clear. ABDOMEN: Soft, nontender, without masses or hepatosplenomegaly. : Not done. EXTREMITIES: No evidence of cyanosis, clubbing or edema. Moves all without focal deficit. NEUROLOGICAL: Grossly within normal limits. Cranial Nerves: II: Visual west are intact. III, IV AND : Extraocular movements are intact. Pupils are equal, round and reactive to light. V: Facial sensation is grossly normal. VII: Facial movements and expression are normal. VIII: Auditory acuity grossly intact. IX, X: Uvula is midline. Phonation is normal. XI: Patient shrugs shoulders and turns head normally. XII: Tongue protrudes in the midline. Sensory and Motor Function: Sensory and motor sensation is grossly normal. Motor: moves all extremities well. Coordination: Gait is normal. Deep Tendon Reflexes: Intact. IMPRESSION 1. Psychiatric admission. 2. Obesity. 3. Type 2 diabetes. 4. Hypertension. 5. Gastroesophageal reflux disease. RECOMMENDATIONS PSYCHIATRIC: Per psychiatrist. MEDICAL: No contraindication to participate in facility's activities. MEDICAL PROGNOSIS Good. MEDICAL CONDITION Unit #: [id number] #: [id number] Patient: RANI RODRIGUEZ Stable. Dictated by... Nadira Lara/deepa TD: 12/22/2016 22:20 JOB #: [id number] HISTORY AND PHYSICAL Page 1 of 1 X DORY SIMPSON APRN HISTORY AND PHYSICAL
--- NOTE | ~2016-12-21 | CO ---
Unit #: [id number] #: [id number] Patient: RANI RODRIGUEZ [id number] [place] [address] [id number] I MR#: [id number] NAME: RANI RODRIGUEZ ROOM: [facility] Age: 56 Sex: F Admission Date: 12/21/2016 : 1960 Attending Physician: Cb Callahan M.D. Primary Care Physician: Primary Care Physician No Consultation Date: 12/22/2016 CONSULTATION REPORT HISTORY OF PRESENT ILLNESS Rani had an elevated potassium of 5.6. She denies any history of elevated potassium. She does have hypertension, but is taking lisinopril 20 mg daily. She is not taking any other medications that could affect her potassium. She has no complaints of heart palpitations or chest pain. No other complaints. PHYSICAL EXAMINATION CARDIAC: Regular rate and rhythm. No murmurs, gallops, or rubs. RESPIRATORY: Clear to auscultation bilaterally. ASSESSMENT AND PLAN Hyperkalemia. She has a BMP ordered in the morning. We will monitor that. Please notify if abnormal. Dictated by... Nadira Lara/nancy TD: 12/22/2016 23:50 JOB #: [id number] CONSULTATION REPORT Page 1 of 1 X DORY SIMPSON APRN X CONSULTATION REPORT
--- NOTE | ~2016-12-21 | CO ---
Unit #: [id number] #: [id number] Patient: RANI RODRIGUEZ [id number] [place] [address] [id number] I MR#: [id number] NAME: RANI RODRIGUEZ ROOM: [facility] Age: 56 Sex: F Admission Date: 12/21/2016 : 1960 Attending Physician: Cb Callahan M.D. Primary Care Physician: Primary Care Physician No Consultation Date: 12/26/2016 CONSULTATION REPORT HISTORY OF PRESENT ILLNESS Rani is a poor historian and unable to accurately explain what happened. She does report that she fell this morning while she was in the shower and hit her head. Staff reports that she did have some bleeding from her head wound, but has been ambulating well without any problems and seems to be doing okay on the unit. She has no headache and no complaints. PHYSICAL EXAMINATION CARDIAC: Regular rate and rhythm. No murmurs, gallops, or rubs. RESPIRATORY: Clear to auscultation bilaterally. SKIN: 1 cm laceration to scalp, well approximated. No bleeding or oozing. ASSESSMENT AND PLAN Scalp laceration. At this time, there really is no intervention required. The laceration is clean and dry and well approximated. Please notify if symptoms change. Dictated by... Nadira Lara/nancy TD: 12/27/2016 02:00 JOB #: [id number] CONSULTATION REPORT Page 1 of 1 X DORY SIMPSON APRN X CONSULTATION REPORT
--- NOTE | ~2016-12-21 | PN ---
Unit #: [id number] #: [id number] Patient: RANI FOSTER [id number] [facility] [address] [place] [address] [id number] I MR#: [id number] NAME: RANI FOSTER ROOM: [facility] Age: 56 Sex: F Admission Date: 12/21/2016 : 1960 Attending Physician: Cb Callahan M.D. Admitting Physician: Cb Callahan M.D. Primary Care Physician: Primary Care Physician Irena BELTRÁN NOTES DATE OF SERVICE: 12/25/2016 DISCUSSION Rani Foster is a 56-year-old female, seen on 12/25/2016. The patient continues to have mood lability, disorganized behavior, disorganized thought process, tangential thought process, guarded. The patient's Accu-Chek in the morning of 67 and at lunch time 82. The patient received p.r.n. medication for anxiety. The patient was sleepy after the breakfast. According to the staff report, no major problems, but reported naked during rounds and encouraged to put clothes back on. Complete review of systems unremarkable. MENTAL STATUS EXAMINATION General appearance; the patient dressed casually. Attention span and concentration, poor. Oriented in self and place. Mood and affect, labile. Speech, disorganized. Thought process, disorganized. The patient denied any thoughts of harming self or others, but guarded, paranoid, passive SI, disorganized behavior, disorganized thought process. Recent and remote memory, poor. Insight and judgment, poor. DIAGNOSIS Bipolar mood disorder, not otherwise specified. ASSESSMENT AND PLAN Advised to continue with current medication combination of Depakote, Geodon, and Valium. If needed, consider low dose of Haldol. Continue with the inpatient program at this time. Dictated by... Bhaskar Rich/celsol TD: 12/25/2016 19:17 JOB #: [id number] Unit #: [id number] #: [id number] Patient: RANI FOSTER LEIGH ANN NOTES Page 1 of 1 X Cb Callahan MD X PROGRESS NOTE
--- NOTE | ~2016-12-21 | PN ---
Unit #: [id number] #: [id number] Patient: RANI FOSTER [id number] [facility] [address] [place] [address] [id number] I MR#: [id number] NAME: RANI FOSTER ROOM: P256 Age: 56 Sex: F Admission Date: 12/21/2016 : 1960 Attending Physician: Cb Callahan M.D. Admitting Physician: Cb Callahan M.D. Primary Care Physician: Primary Care Physician Irena PATEL PROGRESS NOTES DATE OF SERVICE 12/27/2016 DISCUSSION Ms. Rani Foster is a 56-year-old female seen on 12/27/2016. The patient interviewed, chart reviewed. Obtained information from nursing staff. The patient was in wheelchair, needing one-to-one monitoring, dressed in hospital attire, scrubs. The patient's vital signs stable, 98.6, 89, 20, 109/71. The patient needed p.r.n. medication, Thorazine 100 mg IM last night for agitation. The patient still looks very euphoric, agitated, in a manic state. The patient continues to be confused, combative, agitated during second shift. Complete Review of Systems: Unremarkable. MENTAL STATUS EXAMINATION General Appearance: The patient dressed in hospital attire. Attention span, concentration: Poor. Orientation in self and place. Mood and affect labile. Speech: Rapid, pressured. Thought process: Circumstantial. The patient denied any suicidal or homicidal ideation but guarded, paranoid, disorganized behavior. Flight of idea, pressured speech. Recent and remote memory: Poor. Insight and judgment: Poor. DIAGNOSIS Bipolar mood disorder not otherwise specified. ASSESSMENT/PLAN Advised to continue with current medication and therapeutic protocol. Continue with one-to-one monitoring for safety of the patient. Continue with current medication and make further adjustment of medication if needed. The patient reported that she was on Seroquel in the past, that helped her. If needed, consider the patient is on 2 antipsychotics at this time. Currently on a combination of Geodon and haloperidol. Plan to check Depakote level and ammonia level tomorrow morning. The patient's blood glucose this afternoon was 98. Dictated by... Cb Callahan M.D. YUE/zakia Unit #: [id number] #: [id number] Patient: RANI FOSTER TD: 12/28/2016 07:20 JOB #: [id number] JORGE PROGRESS NOTES Page 1 of 1 X Cb Callahan MD PROGRESS NOTE
--- NOTE | ~2016-12-21 | DS ---
Unit #: [id number] #: [id number] Patient: AMBER RODRIGUEZ [id number] [place] [address] [id number] I MR#: [id number] NAME: AMBER RODRIGUEZ ROOM: [facility] Age: 56 Sex: F Admission Date: 12/21/2016 : 1960 Discharge Date: 12/30/2016 Attending Physician: Cb Callahan M.D. Primary Care Physician: Primary Care Physician No DISCHARGE SUMMARY REASON FOR ADMISSION Not sleeping and agitation. DIAGNOSTIC STUDIES LABORATORY RESULTS: Unremarkable. HOSPITAL COURSE The patient was admitted to the inpatient unit on 12/21/2016 and discharged on 12/30/2016. The patient was treated on the inpatient unit with group therapy, individual therapy, and medication management. The patient was responsive to treatment, but the patient started having problems with increased sedation and confusion. Subsequently, the patient was sent for medical evaluation to [facility]. Subsequently, the patient was admitted for further treatment and the patient was subsequently discharged. DISCHARGE MEDICATIONS Depakote ER 500 mg in the morning and 1000 mg at bedtime for mood stabilization, Geodon 80 mg at bedtime for psychosis, Zestril 20 mg daily for hypertension, Protonix 40 mg daily for GERD, Requip 1 mg b.i.d. for restless legs syndrome, Glucophage 1000 mg b.i.d. for diabetes, Levemir for diabetes, and Zofran for nausea. DISCHARGE DIAGNOSES Psychiatric: Bipolar mood disorder, recurrent, severe, depressed, F31.9. Secondary diagnosis: Deferred. Medical diagnoses: Obesity, diabetes mellitus, and tremors. Stressors: Psychosocial stressors. DISCHARGE INSTRUCTIONS The patient to follow up in outpatient clinic as per outreach and education social worker. CONDITION ON DISCHARGE The patient was pleasant and cooperative. Denied any psychotic symptoms or any suicidal ideation. PROGNOSIS Guarded. DIET AND ACTIVITY Unit #: [id number] #: [id number] Patient: AMBER RODRIGUEZ As tolerated. Dictated by... Bhaskar Rich/nancy TD: 01/05/2017 18:00 JOB #: [id number] DISCHARGE SUMMARY Page 1 of 1 X Cb Callahan MD DISCHARGE SUMMARY
--- NOTE | ~2016-12-21 | PN ---
Unit #: [id number] #: [id number] Patient: RANI FOSTER [id number] [facility] [address] [place] [address] [id number] I MR#: [id number] NAME: RANI FOSTER ROOM: P256 Age: 56 Sex: F Admission Date: 12/21/2016 : 1960 Attending Physician: Cb Callahan M.D. Admitting Physician: Cb Callahan M.D. Primary Care Physician: Primary Care Physician Irena BELTRÁN NOTES DATE OF SERVICE 12/30/2016 DISCUSSION Ms. Rani Foster is a 56-year-old female seen on 12/30/2016. The patient interviewed, chart reviewed. Obtained information from nursing staff. The patient seemed very sleepy, drowsy, answered questions in short sentences, some disorganization behavior and thought process. The patient's blood sugar this morning was 118. CMP showed potassium 5.9, glucose 137, BUN 33, creatinine 1.3. Complete review of systems unremarkable. MENTAL STATUS EXAMINATION General appearance, the patient dressed in hospital attire. Attention span and concentration poor. Orientation in self. Mood and affect labile. Speech slow. Thought process circumstantial. The patient denied any thoughts of harming self or others but guarded, paranoid. Recent and remote memory poor. Insight and judgement poor. DIAGNOSES Bipolar mood disorder NOS. ASSESSMENT/PLAN Based on current assessment recommending at this time (1) out to [facility] for psychiatric stabilization. Dictated by... Bhaskar Rich/conrad TD: 01/01/2017 02:42 JOB #: [id number] Unit #: [id number] #: [id number] Patient: RANI FOSTER PROGRESS NOTES Page 1 of 1 X Cb Callahan MD X PROGRESS NOTE
--- NOTE | ~2016-12-21 | PA ---
Unit #: [id number] #: [id number] Patient: [facility]OST[facility] [id number] [facility] [place] [address] [id number] I MR#: [id number] NAME: RANI FOSTER ROOM: [facility] Age: 56 Sex: F Admission Date: 12/21/2016 : 1960 Date of Assessment: 12/22/2016 Attending Physician: Cb Callahan M.D. Admitting Physician: Cb Callahan M.D. Primary Care Physician: Primary Care Physician No PSYCHIATRIC ASSESSMENT INFORMANTS The patient's reliability, poor; chart reliability, good. CHIEF COMPLAINT Suicidal ideation, depression, leon. HISTORY OF PRESENT ILLNESS Ms. Rani Foster is a 56-year-old female, well known to us from her previous admission in 08/2016. The patient has a longstanding history of psychiatric illness, followed by Dr. Toscano in outpatient practice, also treated at [facility] in the [facility] and [place]. The patient lives at home with her . The patient was admitted due to hearing voices and the voices telling her that to hurt herself. The patient reports that she has thoughts of taking a knife to hurt herself. The patient also reported presenting with delusions of reference, where she feels the TV is talking to her. The patient reports mixed affect, tangential, circumstantial, loose association. The patient also has voodoo preoccupation, sexually focused at times. The patient also had ECT yesterday. The patient had a lap band surgery in the past year, feels that may be precipitant of the patient's issues. The patient needing inpatient admission at this time for psychiatric stabilization. PAST PSYCHIATRIC HISTORY Remarkable for history of outpatient services through Dr. Toscano of outpatient services and PCP with Dr. Batista, [facility] treatment in 07/2016 at [facility], inpatient at [facility] 2017, inpatient in [facility] for psychosis. FAMILY HISTORY AND SOCIAL HISTORY The patient has a good support from her . Family psychiatric illness is unknown for any history of any psychiatric illness in the family. No known history of any abuse. MEDICAL HISTORY Remarkable for history of diabetes, hypertension, tremor. Musculoskeletal; muscle strength and tone, no atrophy or abnormal movement. Gait normal. MEDICATION HISTORY The patient is currently on Valium 5 mg at bedtime, Myrbetriq 50 mg daily, Requip 1 mg b.i.d., Protonix 40 mg daily, Zestril 20 mg daily, Depakote 500 mg daily, Glucophage 1000 mg b.i.d., Accu-Cheks, Levemir, Geodon 80 mg at bedtime, Depakote 1000 mg at bedtime, cephalexin last dose on Unit #: [id number] #: [id number] Patient: RANI FOSTER 12/22/2016. ALLERGIES No known drug allergies. SUBSTANCE ABUSE HISTORY None. REVIEW OF SYSTEMS HEENT: Eyes, clear. Ears, nose, mouth, and throat; clear. CARDIOVASCULAR: Unremarkable. RESPIRATORY: Unremarkable. GI: Unremarkable. : Unremarkable. SKIN: Unremarkable. LYMPH NODE: Unremarkable. NEUROLOGIC: Unremarkable. ENDOCRINE: Unremarkable. HEMATOLOGIC: Unremarkable. ALLERGIC/IMMUNOLOGIC: Unremarkable. MUSCULOSKELETAL: Muscle strength and tone, no atrophy or abnormal movement. Gait normal. MENTAL STATUS EXAMINATION CONSTITUTIONAL: Measurement of vital signs; temperature 98.7, pulse 89, respirations 16, blood pressure 93/68. Height 5 feet 6 inches, weight 219 pounds. GENERAL APPEARANCE: The patient dressed casually. The patient did not show any facial deformity. MUSCULOSKELETAL: Please see above. PSYCHIATRIC EXAMINATION Description of speech, rapid in rate. Description of thought process, circumstantial. Description of association, guarded and paranoid. Description of abnormal psychotic thinking; guarded, paranoid, delusional, attending to internal stimuli, depression, suicidal ideation. Description of the patient's judgment; concerning everyday activity, poor. Social situation, poor. Concerning psychiatric condition, poor. Complete mental status examination; oriented in time, place, and person. Recent and remote memory, fair. Attention span and concentration, fair. Language, able to name object and repeat phrases. Fund of knowledge, aware of current event and passive vocabulary intact. Mood and affect, sad and dysphoric. Insight and judgment, fair to poor. ASSETS AND LIABILITIES Assets; the patient is articulate, able to take care of her ADL. Liability, history of depression. DIAGNOSES Psychiatric: Bipolar mood disorder, recurrent, depressed, severe, F31.9. Secondary diagnosis: Deferred. Medical diagnoses: Obesity, diabetes mellitus, tremor. Stressors: Psychosocial stressor. Unit #: [id number] #: [id number] Patient: RANI FOSTER PSYCHIATRIC PLAN AND TREATMENT GOAL 1. Advised to admit the patient on the inpatient unit. Provide safe, supportive, and structured environment. 2. Ordered labs; CBC, CMP, UA, and UDS. 3. Precaution for self-harm, psychosis. 4. Advised to resume the patient's home medication. If needed, consider further adjustment of medication. Plan to check Depakote level, ammonia level. Monitor the patient's medical condition closely. The patient to attend group therapy, individual therapy, family session. Treatment goal to attain euthymic mood, gain insight into her problem, and learn coping skills. DISCHARGE PLAN Plan to stabilize the patient and consider followup in outpatient program. ESTIMATED LENGTH OF STAY 2 weeks. Dictated by... Bhaskar Rich/nancy TD: 12/23/2016 05:03 JOB #: [id number] PSYCHIATRIC ASSESSMENT Page 1 of 1 X Cb Callahan MD X PSYCHIATRIC ASSESSMENT
[2016-12-22 09:36] LABS: BASOPHIL% 0.3 % (0-2.5); EOSINOPHIL# 0.1 X10e3 (0-0.7); EOSINOPHIL% 1.2 % (0.0-7.0); HEMATOCRIT 37.7 % (35.0-45.0); HEMOGLOBIN 12.2 gm/dL (12.0-16.0); LYMPHOCYTE# 3.2 X10e3 (1.0-3.5); LYMPHOCYTE% 48.5 % (17.0-45.0); MEAN CELL VOLUME 101.8 FL (83-96); MEAN CORPUSCULAR HGB CONC 32.4 g/dL (30-36); MEAN PLATELET VOLUME 8.9 FL (6.5-11.5); MONOCYTE# 0.7 X10e3 (0-1.0); MONOCYTE% 10.1 % (3.0-12.0); NEUTROPHIL# 2.7 X10e3 (1.5-7.1); NEUTROPHIL% 39.9 % (40-75); PLATELET COUNT 199 X10e3 (140-420); RED CELL DISTRIBUTION WIDTH 15.6 % (11.0-15.5); WHITE BLOOD COUNT 6.7 X10e3 (4.0-10.5)
[2016-12-22 09:48] LABS: URINE APPEARANCE CLEAR; URINE BILIRUBIN NEG (NEG); URINE BLOOD NEG (NEG); URINE COLOR YELLOW; URINE GLUCOSE NEG (NEG); URINE KETONE NEG (NEG); URINE LEUKOCYTE ESTERASE 3+ (NEG); URINE NITRATE NEG (NEG); URINE PROTEIN NEG (NEG); URINE SPECIFIC GRAVITY 1.013 (1.003-1.035); URINE UROBILINOGEN 0.2 MG/DL (NEG)
[2016-12-22 09:49] LABS: DIFF IND NO
[2016-12-22 09:52] LABS: U HYALINE CASTS AUWI 0-2 /[LPF]; URBCS1 AUWI 0-2 /[HPF] (0-2); URINE BACTERIA AUWI NEG (NEGATIVE); URINE SQUAMOUS EPITHELIAL CELL NONE SEEN /[HPF]
[2016-12-22 10:02] LABS: ALBUMIN SERUM 3.5 g/dL (3.5-5.0); BILIRUBIN,TOTAL 0.8 mg/dL (0.2-2.0); BUN/CREATININE RATIO 22.66; CALCIUM SERUM 9.4 mg/dL (8.4-10.2); CREATININE SERUM 1.5 mg/dL (0.6-1.4); GLOM FILT RATE Estimated 38.3 mL/min (>60); PROTEIN TOTAL SERUM 6.3 g/dL (6.0-8.3)
[2016-12-22 10:11] LABS: POTASSIUM 5.6 mmol/L (3.5-5.1)
[2016-12-22 10:55] LABS: AMPHETAMINE NEG (NEG); BARBITURATES NEG (NEG); BENZODIAZEPINES POS (NEG); COCAINE NEG (NEG); MARIJUANA NEG (NEG); OPIATES NEG (NEG); TRICYCLIC ANTIDEPRESSANTS NEG (NEG); U METHADONE NEG (NEG)
[2016-12-23 11:35] LABS: BUN/CREATININE RATIO 25.38; CALCIUM SERUM 9.4 mg/dL (8.4-10.2); CREATININE SERUM 1.3 mg/dL (0.6-1.4); GLOM FILT RATE Estimated 45.5 mL/min (>60); POTASSIUM 5.3 mmol/L (3.5-5.1)
[2016-12-23 14:17] LABS: URINE APPEARANCE CLEAR; URINE BILIRUBIN NEG (NEG); URINE BLOOD NEG (NEG); URINE COLOR YELLOW; URINE GLUCOSE NEG (NEG); URINE KETONE NEG (NEG); URINE LEUKOCYTE ESTERASE 1+ (NEG); URINE NITRATE NEG (NEG); URINE PROTEIN NEG (NEG); URINE SPECIFIC GRAVITY 1.013 (1.003-1.035); URINE UROBILINOGEN 0.2 MG/DL (NEG)
[2016-12-23 14:19] LABS: U HYALINE CASTS AUWI 0-2 /[LPF]; URBCS1 AUWI 0-2 /[HPF] (0-2); URINE BACTERIA AUWI NEG (NEGATIVE); URINE SQUAMOUS EPITHELIAL CELL NONE SEEN /[HPF]; UWBCS1 AUWI 0-2 (0-5)
[2016-12-23 14:30] LABS: AMPHETAMINE NEG (NEG); BARBITURATES NEG (NEG); BENZODIAZEPINES POS (NEG); COCAINE NEG (NEG); MARIJUANA NEG (NEG); OPIATES NEG (NEG); TRICYCLIC ANTIDEPRESSANTS NEG (NEG); U METHADONE NEG (NEG)
[2016-12-24 12:11] LABS: BASOPHIL% 0.6 % (0-2.5); EOSINOPHIL# 0.1 X10e3 (0-0.7); EOSINOPHIL% 0.9 % (0.0-7.0); HEMATOCRIT 38.8 % (35.0-45.0); HEMOGLOBIN 12.6 gm/dL (12.0-16.0); LYMPHOCYTE# 4.3 X10e3 (1.0-3.5); LYMPHOCYTE% 67.9 % (17.0-45.0); MEAN CORPUSCULAR HEMOGLOBIN 33.1 PG (28-34); MEAN CORPUSCULAR HGB CONC 32.4 g/dL (30-36); MEAN PLATELET VOLUME 9.1 FL (6.5-11.5); MONOCYTE# 0.4 X10e3 (0-1.0); MONOCYTE% 6.4 % (3.0-12.0); NEUTROPHIL# 1.5 X10e3 (1.5-7.1); NEUTROPHIL% 24.2 % (40-75); PLATELET COUNT 181 X10e3 (140-420); RED BLOOD COUNT 3.81 X10e (3.90-5.30); RED CELL DISTRIBUTION WIDTH 15.5 % (11.0-15.5); WHITE BLOOD COUNT 6.4 X10e3 (4.0-10.5)
[2016-12-24 12:14] LABS: DIFF IND YES
[2016-12-24 12:28] LABS: ALBUMIN SERUM 3.5 g/dL (3.5-5.0); BILIRUBIN,TOTAL 0.3 mg/dL (0.2-2.0); BUN/CREATININE RATIO 22.85; CALCIUM SERUM 9.7 mg/dL (8.4-10.2); CREATININE SERUM 1.4 mg/dL (0.6-1.4); GLOM FILT RATE Estimated 41.6 mL/min (>60)
[2016-12-24 12:51] LABS: ANISOCYTOSIS SL; PLATELET ESTIMATE NORMAL (NORMAL)
[2016-12-30 11:49] LABS: ALBUMIN SERUM 3.1 g/dL (3.5-5.0); BILIRUBIN,TOTAL 0.9 mg/dL (0.2-2.0); BUN/CREATININE RATIO 25.38; CALCIUM SERUM 9.2 mg/dL (8.4-10.2); CREATININE SERUM 1.3 mg/dL (0.6-1.4); GLOM FILT RATE Estimated 45.5 mL/min (>60); PROTEIN TOTAL SERUM 5.8 g/dL (6.0-8.3)
[2016-12-30 12:26] LABS: POTASSIUM 5.9 mmol/L (3.5-5.1)
[2016-12-30] MEDS ORDERED: METFORMIN HCL1000 M1 PO (17:49)
[2016-12-30] MEDS ORDERED: DIAZEPAM PO (17:50)
[2016-12-30] MEDS ORDERED: MYRBETRIQ50 MG PO (17:51)
[2016-12-30] MEDS ORDERED: NICOTINE TRANSD14 MG TOP (17:51)
[2016-12-30] MEDS ORDERED: COGENTIN1 M1 PO (17:51)
[2016-12-30] MEDS ORDERED: HALDOL PO (17:52)
[2016-12-30] MEDS ORDERED: VALPROIC A250 MG/51 PO (17:53)
[2016-12-30] MEDS ORDERED: VALPROIC A250 MG/53 PO (17:54)
[2016-12-30] MEDS ORDERED: PEPCID AC20 M2 PO (17:55)
[2016-12-30] MEDS ORDERED: REQUIP1 MG PO (17:58)
[2016-12-30] MEDS ORDERED: LISINOPRIL20 MG PO (17:58)
[2016-12-30] MEDS ORDERED: GEODON80 MG PO (17:59)
[2016-12-30] MEDS ORDERED: MAALOX SUSPENS355 ML DOB (18:01)
[2016-12-30] MEDS ORDERED: TYLENOL325 M1 PO (18:01)
[2016-12-30] MEDS ORDERED: ZOFRAN8 MG PO (18:02)
[2016-12-30] MEDS ORDERED: MILK OF MAGNESIA PO (18:02)
[2016-12-30] MEDS ORDERED: VISTARIL PO (18:03)
[2016-12-30] MEDS ORDERED: DESYREL100 MG PO (18:05)
[2016-12-30] MEDS ORDERED: IMODIUM2 MG PO (18:05)
== END 2016-12-30 17:42 | disposition short-term general hospital (02) | DRG 885 ==
LOC: P1S 22:21 → P2L 22:21
PROVIDERS: Psychiatry & Neurology Psychiatry
DX: F31.4 Bipolar disorder, current episode depressed, severe, without psychotic features (principal); E87.5 Hyperkalemia; E66.9 Obesity, unspecified; E11.9 Type 2 diabetes mellitus without complications; R25.1 Tremor, unspecified; S01.01XA Laceration without foreign body of scalp, initial encounter; W18.39XA Other fall on same level, initial encounter; Y93.E1 Activity, personal bathing and showering; Z68.35 Body mass index [BMI] 35.0-35.9, adult
CPT/HCPCS: 80048; 80053; 80164; 80307; 81003; 82140; 82947; 85025; J2060

== ENCOUNTER 2016-12-30 14:10 | Observation (INO) | payer BC, MEDICARE ==
[~2016-12-30] VITALS: Ht 167.6 cm; Wt 84.2 kg
--- NOTE | ~2016-12-30 | CO ---
Unit #: [id number] #: [id number] Patient: AMBER RODRIGUEZ [id number] [place], [place] [address] [id number] I MR#: [id number] NAME: AMBER RODRIGUEZ ROOM: 573 Age: 56 Sex: F Admission Date: 12/30/2016 : 1960 Attending Physician: Betsy Callejas M.D. Primary Care Physician: Primary Care Physician No Consultation Date: 12/31/2016 CONSULTATION REPORT PRIMARY CARE PHYSICIAN Not listed. REASON FOR CONSULTATION Mental status changes. PATIENT IDENTIFICATION This is a 56-year-old, female, evaluated in room 573 at [facility]. SOURCE OF INFORMATION Obtained from the medical record. HISTORY OF PRESENT ILLNESS This is a 56-year-old female with a past medical history of diabetes mellitus type 2 and depression who was admitted to [facility] with suicidal ideation. She was transferred here from [facility] on 12/30/2016 for worsening mental status. Apparently, the patient has been on multiple medications including Haldol, Cogentin, Valium and Geodon. She apparently became significantly lethargic and at one point, slid out of her chair. There was no seizure activity reported. The patient has continued to be quite obtunded here. Her medications are being held including Valium, Geodon, trazodone and Cogentin is being held while the patient is drowsy. There has been no report of any headache, fever, chills, seizure activity, or stroke symptoms. No focal neurologic deficits including any focal weakness, loss of consciousness or altered speech. No complaint of any double vision, blurred vision, or loss of vision, headache, neck pain, fever, or chills. She has been a little hypotensive and her potassium has been elevated. She did receive some Kayexalate. Her urine drug screen is only positive for benzodiazepines. Her white blood cell count has been normal and again she has been afebrile. Her ammonia level was checked yesterday and was 11. She does take Depakote, but again her ammonia level was 11 and her last Depakene level was done on 12/28/2016 was 93. She has not experienced any leukocytosis since admission to [facility] or [facility]. Urinalysis does show 3+ leuks, but is negative for bacteria. White cells are a little elevated. Culture is pending. This was drawn yesterday on 12/30/2016. Her chest x-ray shows low lung volumes as well as increased peribronchial markings bilaterally, more pronounced in central lung zone. Some of the pulmonary parenchymal densities could be atelectatic in nature. Multifocal pneumonia, bronchitis or reactive airway disease could be considered with no compelling evidence of pulmonary edema. No dense airspace disease, pleural effusion or pneumothorax. No suspicious nodule. Please see report per radiologist. Unit #: [id number] #: [id number] Patient: AMBER RODRIGUEZ The patient's blood gases did show decreased pO2 of 67.9 on 3 L nasal cannula this morning and she continues to have elevated potassium. She had a head CT scan done on the initially, which did not show any clearly acute intracranial process and did show generalized atrophy. She had a repeat CAT scan done just about an hour ago that again does not show any acute intracranial abnormality. The patient on exam is obtunded. She requires repeated stimulation, but is arousable. With repeated stimulation with noxious stimuli, she does open her eyes and visually track. She does follow simple commands. In my efforts to attempt to wake her up and with continued noxious stimuli, I told her that I needed her to talk to me and wake up and she responded with "I don't want to." She does not appear to have any gross focal neurologic deficits on exam, though exam is limited given her obtunded state. PAST MEDICAL HISTORY 1. Diabetes mellitus, type 2. 2. Depression. 3. Tobacco use. 4. History of perirectal abscess. 5. Bipolar disorder. 6. History of tremor. 7. Hypertension. 8. GERD. 9. section x1. 10. Lap band procedure. 11. History of hyperkalemia. ALLERGIES No known drug allergies. MEDICATIONS [facility], as per med record include metformin, Valium, Myrbetriq, nicotine transdermal patch, Cogentin, haloperidol, valproic acid, Pepcid AC, lisinopril, Requip, Geodon, Maalox, Tylenol, milk of magnesia, Zofran, Vistaril, Imodium, Desyrel. FAMILY HISTORY Unable to obtain from the patient. SOCIAL HISTORY Unable to obtain from the patient. According to the medical records, she smokes a half pack per day of tobacco with no history of alcohol abuse or illicit drug use. REVIEW OF SYSTEMS Unable to obtain from the patient given her obtunded state. PHYSICAL EXAMINATION VITAL SIGNS: Temperature 98.6, she has been afebrile, pulse 87, respirations 22, blood pressure is 84/56 at 11, nursing is rechecking that, it was 122/78 at 10:00 am, oxygen saturation 94%. Height 5 feet 6 inches, weight 218 pounds, BMI 35. NEUROLOGIC: The patient is obtunded. Please see above. She is arousable with repeated noxious stimuli. She wakes up in response with "I don't want to." When I asked her to talk to me with repeated stimulation, she does open her eyes and look around, but she falls back to sleep very quickly. I am able to get her to squeeze my hands on command consistently. I am able to get her to wiggle her toes and visually track, Unit #: [id number] #: [id number] Patient: AMBER RODRIGUEZ but otherwise detailed neurologic exam is not possible as she is quite obtunded and requires repeated significant stimulation to wake her up. Speech is clear when she does speak. Cranial nerve exam; unable to evaluate west of vision. She responds to threats in the primary visual west. Eyes are conjugate without any ptosis, nystagmus or hippus. Extraocular movements are intact. Strength of muscles of the facial expression is intact. Hearing is intact to voice. Unable to assess tongue, uvula, or palate. Head turning is unremarkable spontaneously. Neck is supple. Motor exam, she has equal senior it assistant strength. She moves all extremities equally and spontaneously. Sensory exam, she withdraws to noxious stimuli in all extremities equally. Gait and Romberg deferred. Reflexes, 1/4. Toes are equivocal. Coordination, unable to assess. DIAGNOSTIC STUDIES IMAGING STUDIES: Please see above. LABORATORY RESULTS: Please see above. They all have been reviewed at length. IMPRESSION 1. Encephalopathy, questionable medication effect. Neurologically, the patient is grossly nonfocal. Able to answer and follow simple commands, but remains obtunded and requires repeated stimulation. 2. Hyperkalemia. 3. Depression with suicidal ideation. 4. Hypotension, nursing to recheck blood pressure. PLAN Ammonia level was at 11 yesterday. The patient is on Depakote. We certainly would want to make sure that hyperammonemia is not contributing, but again it was only [address] Callejas is repeating a level in the morning as well as B12, CBC and CMP. We will check a Depakene level. Her last level on the was 93. Her white count has been normal. She has been afebrile; nothing to suggest acute stroke, seizure or [employer]EDER infection. We will follow up on the labs and monitor the patient. At this time, nothing to suggest an acute primary neurologic etiology, but we will follow along with you. Please call as needed. We thank you very much for allowing us to assist in the care of this patient. Case was discussed with Dr. Santiago and he agrees with the above assessment and plan. Dictated by... Arleen Menchaca A.P.R.N. for Bhaskar Mccollum/nancy TD: 12/31/2016 23:26 JOB #: [id number] Unit #: [id number] #: [id number] Patient: AMBER RODRIGUEZ CONSULTATION REPORT Page 1 of 1 X Arleen Menchaca FISHER TRAP X CONSULTATION REPORT
--- NOTE | ~2016-12-30 | HP ---
Unit #: [id number] #: [id number] Patient: AMBER RODRIGUEZ [id number] [address] [id number] I MR#: [id number] NAME: AMBER RODRIGUEZ ROOM: 86500 Age: 56 Sex: F Admission Date: 12/30/2016 : 1960 Attending Physician: Josie Oden M.D. Primary Care Physician: No Primary Care Physician HISTORY AND PHYSICAL CHIEF COMPLAINT Altered mental status. HISTORY OF PRESENT ILLNESS The patient is a 56-year-old female [facility] status. The patient was [facility] with suicidal ideation and depression. The patient was having increased worsening of the mental status change since and the potassium level was 5 and she was brought to the emergency room for the above reasons. The patient is unable to provide any history. The patient has crying spells. No history of fever. No history of chills. No further history is available. PAST MEDICAL HISTORY 1. History of diabetes. 2. Depression. PAST SURGICAL HISTORY 1. . 2. Colonoscopy. SOCIAL HISTORY The patient smokes a half pack of cigarettes daily. No history of alcohol. FAMILY HISTORY Reviewed and none. ALLERGIES No known drug allergies. HOME MEDICATIONS 1. Metformin. 2. Valium. 3. Myrbetriq. 4. Nicotine. 5. Cogentin. 6. Haloperidol. 7. Valproic acid. 8. Pepcid. 9. Lisinopril. 10. Requip. 11. Geodon. 12. MiraLAX. Unit #: [id number] #: [id number] Patient: AMBER RODRIGUEZ 13. Tylenol. 14. Milk of Magnesia. 15. Zofran. 16. Vistaril. 17. Imodium. 18. Desyrel. REVIEW OF SYSTEMS Unable to obtain as the patient has crying spells and is not answering the questions. PHYSICAL EXAMINATION GENERAL: The patient is lying on the bed, not in acute distress. VITALS: Temperature 98, pulse 94, respiratory rate 26, blood pressure 109/73, saturating 99% on room air. HEENT: Head atraumatic, normocephalic. Pupils equal, round and reactive to light and accommodation. Dry mucous membranes. NECK: Supple. LUNGS: Decreased air entry at the bases. HEART: Regular rate and rhythm. ABDOMEN: Soft. Positive bowel sounds. EXTREMITIES: No cyanosis. No clubbing. NEUROLOGIC: No gross focal motor deficits. DIAGNOSTIC STUDIES IMAGING: Chest x-ray shows increased peribronchial opacities concerning for atelectasis versus mild multifocal pneumonia versus bacterial bronchitis. CT of the head is negative. LABORATORY: (1) less than 0.1, glucose 108, sodium 136, potassium 5.8, chloride 105, bicarb 22, glucose 157, BUN 36, creatinine 1.3, calcium 9.2, AST 12, ALT 10, alkaline phosphatase 61, ammonia level 1. Urine drug screen is positive for the benzos. Urinalysis shows 3+ leukocyte esterase, 10-25 urine WBCs. White blood cell count 7.3, hemoglobin 12.6, hematocrit 37.3, platelets 129. ASSESSMENT/PLAN The patient is admitted to observation with telemetry. The patient will receive Kayexalate. Will hold the Metformin and lisinopril for the hyperkalemia. Will give empirically one dose of antibiotics with levofloxacin. Follow up with cultures. Will have psych evaluation. Continue one-to-one sitter at the bedside. Further recommendations will follow. Dictated by Bhaskar Escudero TD: 12/31/2016 06:12 JOB #: [id number] Unit #: [id number] #: [id number] Patient: AMBER RODRIGUEZ HISTORY AND PHYSICAL Page 1 of 1 X JOSIE ODEN MD X HISTORY AND PHYSICAL
--- NOTE | ~2016-12-30 | DS ---
Unit #: [id number] #: [id number] Patient: AMBER RODRIGUEZ [id number] [address] [id number] I MR#: [id number] NAME: AMBER RODRIGUEZ ROOM: 573 Age: 56 Sex: F Admission Date: 12/30/2016 : 1960 Discharge Date: 01/01/2017 Attending Physician: Betsy Callejas M.D. Primary Care Physician: No Primary Care Physician DISCHARGE SUMMARY ADDENDUM Please see above discharge summary for details. After evaluation and discussion with the Our assessment team as well as with Dr. Callahan, decision has been made for patient to be discharged home as she is not a harm to herself or to others. She will be discharged on Depakote 1000 mg p.o. nightly as well as Depakote 500 mg p.o. q.a.m. Her Requip will be continued at 1 mg p.o. b.i.d. She will be continued on lisinopril 20 mg p.o. daily as well as metformin 1000 mg p.o. b.i.d., Zofran 8 mg p.o. q.8 p.r.n., Pepcid 20 mg p.o. b.i.d., and Myrbetriq 50 mg p.o. daily. No further psychiatric medication will be prescribed at the present time. [facility] Dictated by... Bhaskar Ortiz/cely TD: 01/03/2017 10:56 JOB #: [id number] DISCHARGE SUMMARY Page 1 of 1 X Betsy Callejas MD X DISCHARGE SUMMARY
--- NOTE | ~2016-12-30 | CR72 ---
[facility] A Service of [facility] RADIOLOGY TEXT RESULTS PATIENT: AMBER RODRIGUEZ LOCATION: [place] [address] : 58 UNIT #: [id number] AGE: [address]: JOSIE ODEN MD SEX: F ORDER DR: [id number] [facility] [address] [place], [place] [address] [id number] MR#: [id number] Acc #: [id number] NAME: AMBER RODRIGUEZ : 1960 SEX: F STUDY DATE/TIME: 12/31/2016 2:52 UNIT: [facility] ROOM: [facility] STUDY DESCRIPTION: CR Chest Single View Portable Attending Physician: Josie Oden M.D. Ordering Physician: Ashlie Coombs M.D. Primary Care Physician: No Primary Care Physician MEDICAL IMAGING REPORT This report is preliminary unless electronic signature is present EXAMINATION Portable chest. DATE 12/31/2016 at 02:52. HISTORY Confusion and shortness of breath and weakness for the past 3 days. COMPARISON AP portable chest, 12/30/2016. FINDINGS Patient is slightly rotated toward the right. Suspected ill-defined interstitial type infiltrates predominately in the right lung, not significantly changed from prior, but appear new compared to the PA and lateral chest radiograph from 01/13/2016. Heart size is within normal limits. Benign calcified granulomatous change in the left lung. Marginal osteophyte formation of the thoracic spine. No pleural effusion or pneumothorax. IMPRESSION Suspected ill-defined interstitial type infiltrates predominately in the right lung without significant change from 1 day prior. Correlate clinically for pneumonia. Dictated by... Maya Foster M.D. THIS IS AN ELECTRONICALLY VERIFIED REPORT Maya Foster M.D. at 12/31/2016 9:[address] [facility]/jt [facility] A Service [facility] RADIOLOGY TEXT RESULTS PATIENT: AMBER RODRIGUEZ LOCATION: [facility] 5708-02 : 58 UNIT #: [id number] AGE: [address]: JOSIE ODEN MD SEX: F ORDER DR: TD: 12/31/2016 18:41 JOB #: [id number] MEDICAL IMAGING REPORT Page 1 of 1 COPY
--- NOTE | ~2016-12-30 | EKG ---
PATIENT: AMBER RODRIGUEZ UNIT #: [id number] Ventricular Rate: 93 BPM Atrial Rate: 93 BPM P-R Interval: 150 ms QRS Duration: 70 ms Q-T Interval: 330 ms QTC Calculation(Bezet): 410 ms P [place]: 15 degrees Calculated R [place]: 34 degrees Calculated T [place]: 29 degrees Diagnosis Line: Normal sinus rhythm Diagnosis Line: Normal ECG Diagnosis Line: When compared with ECG of 15-NOV-2015 15:36, Diagnosis Line: No significant change was found Diagnosis Line: Confirmed by PERRY BORGES MD ([id number]) on Diagnosis Line: 01/01/2017 8:55:53 AM INTERPRETING MD: JONY NATARAJAN
--- NOTE | ~2016-12-30 | CT71 ---
[facility] Service of [facility] RADIOLOGY TEXT RESULTS PATIENT: AMBER RODRIGUEZ LOCATION: [facility] 5708-02 : 58 UNIT #: [id number] AGE: [address]: Betsy Callejas MD SEX: F ORDER DR: [id number] [place], [place] [address] [id number] I MR#: [id number] Acc #: [id number] NAME: AMBER RODRIGUEZ : 1960 SEX: F STUDY DATE/TIME: 12/31/2016 13:19 UNIT: [facility] ROOM: [facility] STUDY DESCRIPTION: CT Head Wo Contrast Attending Physician: Keyona Oden M.D. Ordering Physician: Betsy Callejas M.D. Primary Care Physician: Primary Care Physician No MEDICAL IMAGING REPORT This report is preliminary unless electronic signature is present EXAM CT head without contrast INDICATION Confusion and lethargy for the past [address] of the head. This CT exam was performed with one or more of the following radiation dose reduction techniques: automatic exposure control, adjustment of mA and/or kV according to patient size, and iterative reconstruction. COMPARISON 12/30/2016 FINDINGS No acute hemorrhage, abnormal mass effect, extraaxial fluid collection or hydrocephalus. No depressed calvarial fracture. Paranasal sinuses and mastoid air cells are clear. IMPRESSION No acute intracranial findings. Dictated by... Ben Farrar M.D. THIS IS AN ELECTRONICALLY VERIFIED REPORT Ben Farrar M.D. at 01/02/2017 5:02 PM EED/sruthid [facility] A Service of [facility] RADIOLOGY TEXT RESULTS PATIENT: AMBER RODRIGUEZ LOCATION: [facility] : 58 UNIT #: [id number] AGE: [address]: Betsy Callejas MD SEX: F ORDER DR: TD: 12/31/2016 22:50 JOB #: [id number] MEDICAL IMAGING REPORT Page 1 of 1 COPY
--- NOTE | ~2016-12-30 | CO ---
Unit #: [id number] #: [id number] Patient: RANI FOSTER [id number] [address] [address] [id number] I MR#: [id number] NAME: RANI FOSTER ROOM: 573 Age: 56 Sex: F Admission Date: 12/30/2016 : 1960 Attending Physician: Keyona Oden M.D. Primary Care Physician: Primary Care Physician No Consultation Date: 12/31/2016 CONSULTATION REPORT REASON FOR CONSULTATION Confusion, bipolar disorder, change in mental status. HISTORY OF PRESENT ILLNESS Ms. Rani Foster is a 56-year-old white female, seen in room 573, bed 1 on 12/31/2016. The patient was recently transferred from [facility] with change of mental status, extreme drowsiness. The patient was initially admitted to [facility] in a manic state. The patient was on Depakote, Geodon, and Haldol. The patient dressed in hospital attire, lying comfortably in bed. The patient's Depakote level came back 78. The thyroid function within normal range. CT scan showed generalized atrophy. The patient's CBC was remarkable for hemoglobin 11.0. Glucose 93, CMP was remarkable for potassium 5.3. The patient was unable to give any reliable information. No agitation. Has a sitter. The patient's vital signs; temperature 97.7, pulse 75, respirations 22, and blood pressure 85/54, oxygen saturation 95%. PAST PSYCHIATRIC HISTORY Remarkable for history of previous treatment at [facility] in 08/2016, 07/2016, 11/2013, and 2007. The patient carries a diagnosis of bipolar mood disorder/schizoaffective disorder. MEDICAL HISTORY Remarkable for history of altered mental status, diabetes. ALLERGIES Sodium. MEDICATION HISTORY The patient at the time of admission was on metformin, Valium, Myrbetriq, nicotine, Cogentin, Haldol, valproic acid, Pepcid, lisinopril, Requip, Geodon, MiraLAX, Vistaril, and Desyrel. FAMILY HISTORY AND SOCIAL HISTORY The patient has a good support system from . No history of any abuse. No history of any substance abuse. REVIEW OF SYSTEMS Complete review of systems is unremarkable. The patient's vital signs please see above. MENTAL STATUS EXAMINATION General appearance, the patient moderately obese, dressed casually, lying comfortably in bed, receiving oxygen, unable to give any reliable Unit #: [id number] #: [id number] Patient: RANI FOSTER information. Attention span and concentration, poor. Speech, unable to assess. Orientation, unable to assess. Mood and affect. Thought process, thought content, recent and remote memory; unable to assess. Language, unable to assess. Fund of knowledge and insight and judgment, impaired. DIAGNOSES Psychiatric: Delirium, F05; bipolar mood disorder, recurrent, severe, depressed; F31.9; rule out schizoaffective disorder. Secondary diagnosis: Deferred. Medical diagnosis: Please refer to H and P. Stressors: Psychosocial stressors. ASSESSMENT/PLAN 1. Continue with a sitter one-on-one monitoring. 2. Agree with a plan to discontinue medications such as Geodon and other psychotropic medication. The patient is currently on Haldol and Depakote. The patient advised to hold Valium if the patient too sleepy. We will continue to follow and make further adjustment of medication. Please feel free to call if any questions telephone #[phone]. Dictated by... Cb Callahan M.D. YUE/nancy TD: 12/31/2016 21:28 JOB #: [id number] CONSULTATION REPORT Page 1 of 1 X Cb Callahan MD X CONSULTATION REPORT
--- NOTE | ~2016-12-30 | CT71 ---
[facility] A Service [facility] RADIOLOGY TEXT RESULTS PATIENT: AMBER RODRIGUEZ LOCATION: [facility] 5708-02 : 58 UNIT #: [id number] AGE: [address]: JOSIE ODEN MD SEX: F ORDER DR: [id number] [place], [place] [address] [id number] I MR#: [id number] Acc #: [id number] NAME: AMBER RODRIGUEZ : 1960 SEX: F STUDY DATE/TIME: 12/30/2016 15:51 UNIT: [facility] ROOM: [facility] STUDY DESCRIPTION: CT Head Wo Contrast Attending Physician: Josie Oden M.D. Ordering Physician: Charly De Los Santos M.D. Primary Care Physician: No Primary Care Physician MEDICAL IMAGING REPORT This report is preliminary unless electronic signature is present EXAM Head CT no contrast 12/30/2016. INDICATIONS 56-year-old female with confusion, head discomfort. Increased potassium levels since December 28, diabetes. TECHNIQUE Head CT. This CT exam was performed with one or more of the following radiation dose reduction techniques: automatic exposure control, adjustment of mA and/or kV according to patient size, and iterative reconstruction. COMPARISON Frontal chest compared with 11/15/2015. FINDINGS CT BRAIN: There is motion degradation. These were the best images possible. There is generalized atrophy. Sulci and ventricles otherwise unremarkable. No midline shift. No evidence of acute intracranial hemorrhage. No mass, mass effect, or edema to suggest acute infarct, and no extraaxial fluid collections are present. Globes are intact. Bones intact. Sinuses are clear. IMPRESSION No clearly acute intracranial process. Generalized atrophy. Dictated by... Rohan Govea M.D. [facility] A Service of [facility] RADIOLOGY TEXT RESULTS PATIENT: AMBER RODRIGUEZ LOCATION: [facility] : 58 UNIT #: [id number] AGE: [address]: JOSIE ODEN MD SEX: F ORDER DR: THIS IS AN ELECTRONICALLY VERIFIED REPORT Rohan Govea M.D. at 12/31/2016 2:23 PM TAJ/med TD: 12/31/2016 10:48 JOB #: [id number] MEDICAL IMAGING REPORT Page 1 of 1 COPY
--- NOTE | ~2016-12-30 | CR72 ---
[facility] A Service of [facility] RADIOLOGY TEXT RESULTS PATIENT: AMBER RODRIGUEZ LOCATION: [facility] [id number] : 58 UNIT #: [id number] AGE: [address]: Betsy Callejas MD SEX: F ORDER DR: [id number] [facility] [address] [facility] [place], [place] [address] [id number] MR#: [id number] Acc #: [id number] NAME: AMBER RODRIGUEZ : 1960 SEX: F STUDY DATE/TIME: 12/30/2016 16:17 UNIT: [facility] ROOM: [facility] STUDY DESCRIPTION: CR Chest Single View Portable Attending Physician: Keyona Oden M.D. Ordering Physician: Charly De Los Santos M.D. Primary Care Physician: No Primary Care Physician MEDICAL IMAGING REPORT This report is preliminary unless electronic signature is present EXAM Portable chest x-ray, 12/30/2016. HISTORY Weakness. Altered mental status. Short of air. Duration 3 days. TECHNIQUE Supine radiograph of the chest is presented. COMPARISON 01/13/2016 FINDINGS Heart normal to upper limits of normal in size, given the low lung volumes. Lung volumes are low with central bronchovascular crowding. Ill-defined patchy densities throughout the lungs bilaterally. Increased peribronchial markings bilaterally, more pronounced in the central lung zones. Some of the pulmonary parenchymal densities could be atelectatic in nature, given the low lung volumes. Multifocal mild pneumonia or bronchitis/reactive airway disease could be considered. There is no compelling evidence of pulmonary edema. There is no dense airspace disease, pleural effusion, or pneumothorax, and no suspicious nodule. Calcified granuloma, left lower lung zone. Lap Band device partially visualized. Band component at level of gastroesophageal junction. No acute bony abnormality. Degenerative changes in the spine. Dictated by... Anup Cheung M.D. [facility] A Service of [facility] RADIOLOGY TEXT RESULTS PATIENT: AMBER RODRIGUEZ LOCATION: [facility] : 58 UNIT #: [id number] AGE: [address]: Betsy Callejas MD SEX: F ORDER DR: THIS IS AN ELECTRONICALLY VERIFIED REPORT Anup Cheung M.D. at 01/01/2017 2:44 PM LATOYA/med TD: 12/31/2016 11:08 JOB #: [id number] MEDICAL IMAGING REPORT Page 1 of 1 COPY
--- NOTE | ~2016-12-30 | DS ---
Unit #: [id number] #: [id number] Patient: AMBER RODRIGUEZ [id number] [address] [address] [id number] I MR#: [id number] NAME: AMBER RODRIGUEZ ROOM: 573 Age: 56 Sex: F Admission Date: 12/30/2016 : 1960 Discharge Date: 01/01/2017 Attending Physician: Betsy Callejas M.D. Primary Care Physician: No Primary Care Physician DISCHARGE SUMMARY REASON FOR ADMISSION Altered mental status. HISTORY OF PRESENT ILLNESS/HOSPITAL COURSE A 56-year-old female brought to the emergency department, transferred from [facility] secondary to altered mental status. Originally, she was admitted secondary to depression, suicidal ideation while there. She was noted to have worsening of her mental status and therefore was transferred for further evaluation. While here, she underwent routine laboratory studies as well as routine imaging. CT head noncontrast was performed. It did not show any acute process. Blood cultures did not show any acute bacterial growth. Her laboratory studies were otherwise unremarkable including a TSH, chest x-ray, ammonia level, as well as, final urinalysis and/or urine culture. Her B12 level was noted to be 165 and this was repleted while she was here. She should continue on B12 IM 1000 unit injections for approximately seven days and then can be converted to an every other week basis as an outpatient. At this point in time, patient is medically stable for transfer back to [facility]. She continues to have somnolent and/or mental status changes. I have discontinued many of her medications in regard to medications that may cause sedation and/or mental status decline. The addition of these medications and/or adjustments may be at the discretion of the psychiatrist at [facility], but from our standpoint, patient is currently medically stable for transfer back for continuing care there at [facility]. FINAL DISCHARGE DIAGNOSES 1. Temporary encephalopathy, likely secondary to polypharmacy. 2. Major depressive disorder. 3. Underlying mental illness. 4. Depression. 5. B12 deficiency. FINAL DISCHARGE MEDICATIONS 1. Tylenol 650 mg p.o. q.6 p.r.n. 2. Valproic acid as per direction of psychiatrist, currently taking 1000 mg p.o. nightly and 500 mg p.o. q.a.m. 3. Metformin 1000 mg p.o. b.i.d. 4. Imodium 2 mg p.o. q.6 p.r.n. 5. Zofran 8 mg p.o. q.8 p.r.n. 6. Requip 1 mg p.o. b.i.d. 7. Milk of Magnesia 30 mL p.o. daily p.r.n. 8. Myrbetriq 50 mg p.o. daily. Unit #: [id number] #: [id number] Patient: AMBER RODRIGUEZ 9. Pepcid 20 mg p.o. b.i.d. DISCHARGE CONDITION Stable. DISCHARGE DISPOSITION [facility]. Dictated by... Bhaskar Ortiz/cely TD: 01/03/2017 09:47 JOB #: [id number] DISCHARGE SUMMARY Page 1 of 1 X Betsy Callejas MD X DISCHARGE SUMMARY
--- NOTE | ~2016-12-30 | CO ---
Unit #: [id number] #: [id number] Patient: AMBER FOSTER [id number] [facility] [address] [place], [place] [address] [id number] I MR#: [id number] NAME: AMBER FOSTER ROOM: 573 Age: 56 Sex: F Admission Date: 12/30/2016 : 1960 Attending Physician: Betsy Callejas M.D. Primary Care Physician: Primary Care Physician No Consultation Date: 01/01/2017 CONSULTATION REPORT DISCUSSION Ms. Thu Foster is a 56-year-old female, seen in room 573 bed 1 on 01/01/[address] [facility]. The [facility] The patient was somewhat guarded, paranoid, mood lability. The patient was more alert and awake, then later went to sleep. The patient wanted her medication. The patient having her days and nights mixed up, some confusion. The patient was still withdrawn, flat affect, sad, dysphoric mood and also having mood lability and some confusion, but no agitation. The patient has a sitter. The patient vital signs; temperature 97.4, pulse 61, respirations 18, blood pressure 140/80, oxygen saturation 99%. REVIEW OF SYSTEMS Complete review of systems unremarkable. MENTAL STATUS EXAMINATION General appearance, the patient dressed in hospital attire, lying comfortably in bed. Attention span and concentration, poor. Speech, slow. Oriented in self. Mood and affect, labile. Thought process, circumstantial. Thought content, guarded, paranoid, but denied any thoughts of harming self or others. Recent and remote memory, poor. Language, fair. Fund of knowledge, impaired. Insight and judgment, impaired. DIAGNOSES Psychiatric: Bipolar mood disorder, recurrent, severe, depressed, F31.9; delirium, F05. ASSESSMENT AND PLAN Advised to continue with sitter one-to-one for safety of the patient. Advised to continue with current medication and hold medication if the patient too sleepy. The patient is currently on valproic acid, haloperidol, and Requip. If needed, consider further adjustment of medication. Please feel free to call if any questions telephone #[phone]. Dictated by... CbBhaskar Krueger/nancy TD: 01/01/2017 16:35 JOB #: [id number] Unit #: [id number] #: [id number] Patient: AMBER FOSTER CONSULTATION REPORT Page 1 of 1 X Cb Callahan MD X CONSULTATION REPORT
[2016-12-30 15:20] LABS: URINE SOURCE CLEAN CATCH
[2016-12-30 15:21] LABS: BASOPHIL% 0.2 % (0-2.5); EOSINOPHIL% 0.4 % (0.0-7.0); HEMATOCRIT 37.3 % (35.0-45.0); HEMOGLOBIN 12.6 gm/dL (12.0-16.0); LYMPHOCYTE# 1.4 X10e3 (1.0-3.5); LYMPHOCYTE% 19.3 % (17.0-45.0); MEAN CELL VOLUME 100.9 FL (83-96); MEAN CORPUSCULAR HEMOGLOBIN 34.1 PG (28-34); MEAN CORPUSCULAR HGB CONC 33.8 g/dL (30-36); MEAN PLATELET VOLUME 9.1 FL (6.5-11.5); MONOCYTE# 0.5 X10e3 (0-1.0); MONOCYTE% 6.5 % (3.0-12.0); NEUTROPHIL# 5.4 X10e3 (1.5-7.1); NEUTROPHIL% 73.6 % (40-75); PLATELET COUNT 129 X10e3 (140-420); RED CELL DISTRIBUTION WIDTH 14.8 % (11.0-15.5); WHITE BLOOD COUNT 7.3 X10e3 (4.0-10.5)
[2016-12-30 15:25] LABS: DIFF IND NO
[2016-12-30 15:28] LABS: URINE APPEARANCE CLEAR; URINE BILIRUBIN NEG (NEG); URINE BLOOD NEG (NEG); URINE COLOR YELLOW; URINE GLUCOSE NEG (NEG); URINE KETONE 1+ (NEG); URINE LEUKOCYTE ESTERASE 3+ (NEG); URINE NITRATE NEG (NEG); URINE PH 5.5 (5-8); URINE PROTEIN NEG (NEG); URINE SPECIFIC GRAVITY 1.019 (1.003-1.035); URINE UROBILINOGEN 0.2 MG/DL (NEG)
[2016-12-30 15:30] LABS: CULTURE INDICATED? YES; URINE BACTERIA AUWI NEG (NEGATIVE); URINE SQUAMOUS EPITHELIAL CELL OCC /[HPF]
[2016-12-30 15:39] LABS: AMPHETAMINE NEG (NEG); BARBITURATES NEG (NEG); BENZODIAZEPINES POS (NEG); COCAINE NEG (NEG); MARIJUANA NEG (NEG); OPIATES NEG (NEG); TRICYCLIC ANTIDEPRESSANTS NEG (NEG); U METHADONE NEG (NEG)
[2016-12-30 15:53] LABS: ALBUMIN SERUM 3.4 g/dL (3.5-5.0); BILIRUBIN, DIRECT 0.1 mg/dL (0.0-0.2); BILIRUBIN,INDIRECT 0.9 mg/dL (0.0-0.9); BUN/CREATININE RATIO 27.69; CALCIUM SERUM 9.2 mg/dL (8.4-10.2); CREATININE SERUM 1.3 mg/dL (0.6-1.4); GLOM FILT RATE Estimated 45.5 mL/min (>60); PROTEIN TOTAL SERUM 6.7 g/dL (6.0-8.3)
[2016-12-30 16:01] LABS: POTASSIUM 5.8 mmol/L (3.5-5.1)
[2016-12-30] MEDS ORDERED: METFORMIN HCL1000 M1 PO (17:49)
[2016-12-30] MEDS ORDERED: DIAZEPAM PO (17:50)
[2016-12-30] MEDS ORDERED: COGENTIN1 M1 PO (17:51)
[2016-12-30] MEDS ORDERED: NICOTINE TRANSD14 MG TOP (17:51)
[2016-12-30] MEDS ORDERED: MYRBETRIQ50 MG PO (17:51)
[2016-12-30] MEDS ORDERED: HALDOL PO (17:52)
[2016-12-30] MEDS ORDERED: VALPROIC A250 MG/51 PO (17:53)
[2016-12-30] MEDS ORDERED: VALPROIC A250 MG/53 PO (17:54)
[2016-12-30] MEDS ORDERED: PEPCID AC20 M2 PO (17:55)
[2016-12-30] MEDS ORDERED: LISINOPRIL20 MG PO (17:58)
[2016-12-30] MEDS ORDERED: REQUIP1 MG PO (17:58)
[2016-12-30] MEDS ORDERED: GEODON80 MG PO (17:59)
[2016-12-30] MEDS ORDERED: MAALOX SUSPENS355 ML DOB (18:01)
[2016-12-30] MEDS ORDERED: TYLENOL325 M1 PO (18:01)
[2016-12-30] MEDS ORDERED: MILK OF MAGNESIA PO (18:02)
[2016-12-30] MEDS ORDERED: ZOFRAN8 MG PO (18:02)
[2016-12-30] MEDS ORDERED: VISTARIL PO (18:03)
[2016-12-30] MEDS ORDERED: DESYREL100 MG PO (18:05)
[2016-12-30] MEDS ORDERED: IMODIUM2 MG PO (18:05)
[2016-12-31 07:00] LABS: BASOPHIL% 0.6 % (0-2.5); EOSINOPHIL# 0.1 X10e3 (0-0.7); EOSINOPHIL% 0.9 % (0.0-7.0); HEMATOCRIT 32.7 % (35.0-45.0); LYMPHOCYTE# 2.9 X10e3 (1.0-3.5); LYMPHOCYTE% 42.7 % (17.0-45.0); MEAN CELL VOLUME 101.4 FL (83-96); MEAN CORPUSCULAR HEMOGLOBIN 34.2 PG (28-34); MEAN CORPUSCULAR HGB CONC 33.7 g/dL (30-36); MEAN PLATELET VOLUME 9.1 FL (6.5-11.5); MONOCYTE# 0.5 X10e3 (0-1.0); MONOCYTE% 7.7 % (3.0-12.0); NEUTROPHIL# 3.2 X10e3 (1.5-7.1); NEUTROPHIL% 48.1 % (40-75); PLATELET COUNT 128 X10e3 (140-420); RED BLOOD COUNT 3.23 X10e (3.90-5.30); RED CELL DISTRIBUTION WIDTH 14.6 % (11.0-15.5); WHITE BLOOD COUNT 6.7 X10e3 (4.0-10.5)
[2016-12-31 07:03] LABS: DIFF IND NO
[2016-12-31 07:36] LABS: ALBUMIN SERUM 2.9 g/dL (3.5-5.0); BILIRUBIN,TOTAL 0.6 mg/dL (0.2-2.0); BUN/CREATININE RATIO 27.27; CALCIUM SERUM 8.9 mg/dL (8.4-10.2); CREATININE SERUM 1.1 mg/dL (0.6-1.4); GLOM FILT RATE Estimated 55.7 mL/min (>60); POTASSIUM 5.3 mmol/L (3.5-5.1); PROTEIN TOTAL SERUM 5.8 g/dL (6.0-8.3)
[2016-12-31 08:18] LABS: ARTERIAL BLD GAS O2 SATURATION 91.1 % (90.0-100.0); ARTERIAL BLOOD GAS ALLEN TEST NORMAL; ARTERIAL BLOOD GAS ART SITE RIGHT RADIAL; ARTERIAL BLOOD GAS CARBOXY HB 0.8 %sat (0.0-9.0); ARTERIAL BLOOD GAS DELIVERY NASAL CANNULA; ARTERIAL BLOOD GAS HCO3 24.8 mmol/L; ARTERIAL BLOOD GAS MET HB 0.6 %sat (0.0-2.0); ARTERIAL BLOOD GAS PCO2 44.8 mmHg (35.0-45.0); ARTERIAL BLOOD GAS PO2 67.9 mmHg (80.0-100); ARTERIAL BLOOD GAS pH 7.351 (7.350-7.450); ARTERIAL DRAW? YES
[2017-01-01 05:55] LABS: HEMATOCRIT 34.2 % (35.0-45.0); HEMOGLOBIN 11.4 gm/dL (12.0-16.0); MEAN CELL VOLUME 102.2 FL (83-96); MEAN CORPUSCULAR HEMOGLOBIN 34.1 PG (28-34); MEAN CORPUSCULAR HGB CONC 33.4 g/dL (30-36); MEAN PLATELET VOLUME 9.1 FL (6.5-11.5); RED BLOOD COUNT 3.35 X10e (3.90-5.30); RED CELL DISTRIBUTION WIDTH 14.9 % (11.0-15.5); WHITE BLOOD COUNT 4.6 X10e3 (4.0-10.5)
[2017-01-01 06:45] LABS: ALBUMIN SERUM 2.8 g/dL (3.5-5.0); BILIRUBIN,TOTAL 0.3 mg/dL (0.2-2.0); CALCIUM SERUM 9.5 mg/dL (8.4-10.2); GLOM FILT RATE Estimated 62.5 mL/min (>60); POTASSIUM 4.8 mmol/L (3.5-5.1); PROTEIN TOTAL SERUM 5.6 g/dL (6.0-8.3)
[2017-01-01] MEDS ORDERED: METFORMIN HCL1000 M1 PO (19:59)
[2017-01-01] MEDS ORDERED: LISINOPRIL20 MG PO (20:01)
== END 2017-01-01 22:00 | disposition home or self-care (01) | DRG 72 ==
LOC: CED 14:10 → C5C 19:00 → CEDOF 19:00 → CED 19:29 → CEDOF 19:29 → C5C 12-31 09:41
PROVIDERS: Emergency Medicine; Family Medicine; Internal Medicine; Student in an Organized Health Care Education/Training Program
DX: G93.40 Encephalopathy, unspecified (principal); F32.9 Major depressive disorder, single episode, unspecified; E53.8 Deficiency of other specified B group vitamins; I10 Essential (primary) hypertension; E11.9 Type 2 diabetes mellitus without complications; E66.01 Morbid (severe) obesity due to excess calories; K21.9 Gastro-esophageal reflux disease without esophagitis; F17.210 Nicotine dependence, cigarettes, uncomplicated; Z68.32 Body mass index [BMI] 32.0-32.9, adult; Z79.84 Long term (current) use of oral hypoglycemic drugs; Z79.899 Other long term (current) drug therapy
CPT/HCPCS: 36415; 36600; 51702; 70450; 71010; 80048; 80053; 80076; 80164; 80178; 80200; 80307; 81003; 82140; 82607; 82803; 82947; 84443; 84703; 85025; 85027; 87040; 87086; 93005; 93306; 96360; 96361; 96365; 96366; 96372; 99285; G0378; J1650; J1956; J2405